=== PATIENT | female | born 1995 | race Caucasian/White ===

== ENCOUNTER 2018-01-14 10:40 | Emergency (ER) | payer OTHER ==
[2018-01-14 11:45] LABS: BILIRUBIN,URINE NEGATIVE (NEGATIVE); KETONES,URINE (UA) TRACE mg/dL (NEGATIVE); OCCULT BLOOD,URINE NEGATIVE (NEGATIVE)
[2018-01-14 11:47] LABS: CLARITY,URINE CLEAR (CLEAR)
[2018-01-14 11:49] LABS: HCG UR QUAL NEGATIVE
--- NOTE | 2018-01-14 11:52 | ED Physician Documentation ---
History of Present Illness - Stated complaint Stated Complaint: VOMITING/ABD PX - Chief complaint Chief Complaint: Abd Pain - Additonal information Additional information: hx from pt 22 f urethral cyst X 2 years followed at [facility] about a month of dysuria seen at [place] yesterday dx UTI by IUA rx macrobid and pyridium worse today wioth severe abd pain NV flank pain subj fever vag dc is not new per her no bleeding Review of Systems Constitutional: reports: Fever Cardiac: denies: Chest pain / pressure Respiratory: denies: Dyspnea GI: reports: Abdominal Pain, Nausea, Vomiting. denies: Diarrhea : reports: Dysuria. denies: Now EGA Musculoskeletal: reports: Back pain Immunocompromised: denies: Immunocompromised PD PAST MEDICAL HISTORY - Past Medical History Past Medical History: No - Past Surgical History Past Surgical History: Yes HEENT: Tonsil/Adenoidectomy - Present Medications Home Medications: Ambulatory Orders Medication Instructions Recorded Confirmed Doxycycline Hyclate 100 mg PO BID #20 capsule 01/14/18 Ibuprofen [Motrin] 400 mg PO Q6H PRN #30 tablet 01/14/18 Oxycodone HCl/Acetaminophen 1 each PO Q6HR PRN #6 tablet 01/14/18 [Percocet 5-325 mg Tablet] - Allergies Allergies/Adverse Reactions: Allergies Allergy/AdvReac Type Severity Reaction Status Date / Time No Known Drug Allergies Allergy Verified 01/14/18 10:52 - Social History Does the pt smoke?: No Smoking Status: Never smoker Does the pt drink ETOH?: No Substance Use and Type: Marijuana - Immunizations Immunizations are current?: No Immunizations: TDAP >10years/unknown PD ED PE NORMAL - Vitals Vital signs reviewed: Yes - Cardiac Cardiac: RRR - Respiratory Respiratory: No respiratory distress - Abdomen Abdomen: Soft, Other (severe TTP mid abd with guarding) - Female Female : 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), Other (large urethral cyst, + vag vault dc, yellow and white may have come from pressure speculum applied to cyst , + CMT and uterine TTP) - Back Back: Other (CVA TTP) - Derm Derm: Normal color - Neuro Neuro: Alert and oriented X 3 Results - Vitals Vitals: Vital Signs - 24 hr 01/14/18 01/14/18 10:43 12:45 Temperature 36.3 C L Heart Rate 108 H 60 Respiratory 20 16 Rate Blood Pressure 126/72 124/90 H O2 Saturation 96 100 Oxygen O2 Source Room air - Labs Labs: Laboratory Tests 01/14/18 01/14/18 01/14/18 11:25 12:30 12:30 WBC 9.8 RBC 4.66 Hgb 13.5 Hct 39.8 MCV 85.4 MCH 28.9 MCHC 33.8 RDW 14.1 Plt Count 291 MPV 9.7 Neut # (Auto) 5.7 Lymph # (Auto) 3.2 [place] # (Auto) 0.5 Eos # (Auto) 0.3 Baso # (Auto) 0.1 Absolute Nucleated RBC 0.00 Nucleated RBC % 0.0 Sodium 139 Potassium 3.9 Chloride 103 Carbon Dioxide 28 Anion Gap 8.0 BUN 13 Creatinine 0.6 Estimated GFR (MDRD) 126 Glucose 87 Calcium 9.4 Total Bilirubin 0.7 AST 19 ALT 16 Alkaline Phosphatase 70 Total Protein 7.5 Albumin 4.6 Globulin 2.9 Albumin/Globulin Ratio 1.6 Lipase 42 Urine Color DK. ORANGE Urine Clarity CLEAR Urine pH 5.0 Ur Specific [place] 1.010 Urine Protein Urine Glucose (UA) Urine Ketones TRACE Urine Occult Blood NEGATIVE Urine Nitrite Urine Bilirubin NEGATIVE Urine Urobilinogen Ur Leukocyte Esterase Urine RBC 0-5 Urine WBC 0-3 Ur Squamous Epith Cells FEW Squamous Urine Bacteria Rare Ur Microscopic Review INDICATED Urine Culture Comments NOT INDICATED Urine HCG, Qual NEGATIVE - Rads (name of study) CT AP Radiology: See rad report (mild periportal edema is non specific) PD MEDICAL DECISION MAKING - ED course ED course: pt with a 2yr hx of an infected urethral cyst that she says she expresses pus from every day that has gone untreated so far now with urinary sx but a neg UA and CMT on pelvic exam and periportal inflammation on CT concern for Priscila Garcia will discuss dispo with [facility] - paged at 1450 paged [facility] numerous times - no answer - per satff he is in the OR and unable to answer right now pt may have PID perhaps even some priscila garcia, but is hemodynamically stable, received IV ab, pain is controlled will dc on ab for tonight and req [facility] see pt for next day fup when is he is out if surgery and available to discuss - Sepsis Event Vital Signs: Vital Signs - 24 hr 01/14/18 01/14/18 10:43 12:45 Temperature 36.3 C L Heart Rate 108 H 60 Respiratory 20 16 Rate Blood Pressure 126/72 124/90 H O2 Saturation 96 100 Oxygen O2 Source Room air Departure - Departure Disposition: 01 Home, Self Care Clinical Impression: PID (acute pelvic inflammatory disease), Priscila-Win and Jose syndrome Condition: Good Instructions: ED PID Follow-Up: Benny Krause MD [Provider Admit Priv/Credential] - (tomorrow for a recheck - if you cannot be seen in [facility] clinic tomorrow come back to the ER to see me tomorrow between 7 AM and 3 PM) Prescriptions: Oxycodone HCl/Acetaminophen [Percocet 5-325 mg Tablet] 1 each PO Q6HR PRN #6 tablet PRN Reason: Severe Pain Doxycycline Hyclate 100 mg PO BID #20 capsule Ibuprofen [Motrin] 400 mg PO Q6H PRN #30 tablet PRN Reason: Pain
[2018-01-14 11:59] LABS: BACTERIA,URINE Rare /HPF (None Seen); RBC,URINE 0-5 /HPF (0-5); SQUAMOUS EPITHELIAL CELL,UR FEW Squamous (<= Few)
[2018-01-14] MEDS ORDERED: ONDANSETRON 4 MG/2 ML VIAL IVP STA (12:16)
[2018-01-14] MEDS ORDERED: SODIUM CHLORIDE 0.9% 1,000 ML IV ONE ×2 (12:16→13:54)
[2018-01-14] MEDS ORDERED: MORPHINE 2 MG/ML SYRINGE IVP STA (12:16)
[2018-01-14 12:40] LABS: BASOPHILS # (AUTO) 0.1 10^3/uL (0.0-0.1); BASOPHILS % (AUTO) 1.3 %; EOSINOPHILS # (AUTO) 0.3 10^3/uL (0.0-0.7); HGB - HEMOGLOBIN 13.5 g/dL (12.0-16.0); LYMPHOCYTES # (AUTO) 3.2 10^3/uL (1.5-3.5); LYMPHOCYTES % (AUTO) 32.8 %; MEAN CORPUSCULAR HEMOGLOBIN 28.9 pg (27.0-31.0); MEAN CORPUSCULAR HGB CONC 33.8 g/dL (32.0-36.0); MEAN CORPUSCULAR VOLUME 85.4 fL (81.0-99.0); MEAN PLATELET VOLUME 9.7 fL (7.9-10.8); MONOCYTES # (AUTO) 0.5 10^3/uL (0.0-1.0); MONOCYTES % (AUTO) 4.8 %; NEUTROPHILS # (AUTO) 5.7 10^3/uL (1.5-6.6); NEUTROPHILS % (AUTO) 58.1 %; PLT - PLATELET COUNT 291 10^3/uL (130-450); RED BLOOD COUNT 4.66 10^6/uL (4.20-5.40); RED CELL DISTRIBUTION WIDTH 14.1 % (12.0-15.0); WHITE BLOOD COUNT 9.8 x10^3/uL (4.8-10.8)
[2018-01-14 12:58] LABS: ALBUMIN 4.6 g/dL (3.2-5.5); ALBUMIN/GLOBULIN RATIO 1.6 (1.0-2.2); BILIRUBIN,TOTAL 0.7 mg/dL (0.2-1.0); CALCIUM 9.4 mg/dL (8.5-10.3); CREATININE 0.6 mg/dL (0.4-1.0); TOTAL PROTEIN 7.5 g/dL (6.7-8.2)
[2018-01-14] MEDS ORDERED: IOPAMIDOL-300 100 ML VIAL ONE (13:07)
[2018-01-14] MEDS ORDERED: IOPAMIDOL-300 100 ML VIAL IVP ONE (13:22)
--- NOTE | 2018-01-14 13:42 | CT Report ---
Procedure Date: 01/14/2018 Accession Number: [id number] / [id number] Procedure: CT - Abdomen/Pelvis W/ CPT Code: FULL RESULT: EXAM: CT ABDOMEN AND PELVIS EXAM DATE: 01/14/2018 01:20 PM. CLINICAL HISTORY: Severe diffuse abd pain. COMPARISONS: None. TECHNIQUE: Routine helical CT imaging was performed through the abdomen and pelvis. IV contrast: ISOVUE 300 100mL. Enteric contrast: No. Reconstructions: Coronal and sagittal. In accordance with CT protocol optimization, one or more of the following dose reduction techniques were utilized for this exam: automated exposure control, adjustment of mA and/or KV based on patient size, or use of iterative reconstructive technique. FINDINGS: Lung Bases: Mild dependent groundglass opacities in the right lower lobe, most likely atelectasis. 7 mm subpleural nodular density in the right middle lobe with linear morphology is of unlikely significance. Liver: Mild periportal edema. No focal lesion. Gallbladder/Bile Ducts: Unremarkable. Spleen: Normal. Pancreas: Normal. Adrenal Glands: Normal. Kidneys: Homogeneous enhancement. No mass or hydronephrosis. Peritoneal Cavity/Bowel: No bowel obstruction. Trace fluid in the pelvis may be physiologic. No abscess , free air or adenopathy. No masses or acute inflammatory process. The appendix is well visualized and normal. Pelvic Organs: The bladder, uterus and ovaries are unremarkable. Vasculature: No aneurysms or other significant abnormality. Bones: No significant abnormality. Other: None. IMPRESSION: Mild periportal edema is nonspecific and could reflect fluid status or inflammation. Otherwise negative CT of the abdomen/pelvis. RADIA
[2018-01-14] MEDS ORDERED: oxyCOD/ACETAMIN 5 MG/325 MG TABLET PO STA (14:46)
[2018-01-14] MEDS ORDERED: DOXYCYCLINE 100 MG TABLET PO STA (15:53)
[2018-01-14] MEDS ORDERED: cefOXitin 1 GM in SODIUM CHLORIDE 0.9% MINIBAG 100 ML IV STA (15:53)
[2018-01-14 17:12] VITALS: BP 121/80
== END 2018-01-14 17:26 | disposition home or self-care (01) ==
LOC: ED 10:40
DX: N73.9 Female pelvic inflammatory disease, unspecified (principal)
CPT/HCPCS: 36415; 74177; 80053; 81001; 81025; 83690; 85025; 87210; 87491; 87591; 96361; 96374; 96375; 99283; 99284; A9270; J2270; Q9967; 81003; 87070; 87086; 87205

== ENCOUNTER 2018-09-28 08:56 | Outpatient (CLI) | payer OTHER ==
--- NOTE | 2018-09-28 16:00 | Nuclear Medicine Report ---
Reason: DELAYED GASTRIC EMPTYING-GASTRIC CONTENTS ON EDG, Procedure Date: 09/28/2018 Accession Number: [id number] / [id number] Procedure: NM - Gastric Empty Small Bowel CPT Code: FULL RESULT: EXAM: Gastric Empty Small Bowel EXAM: Gastric Empty Small Bowel DATE: 09/28/2018 9:15 AM CLINICAL HISTORY: DELAYED GASTRIC EMPTYING-GASTRIC CONTENTS ON ENDOSCOPY, COMPARISON: None. TECHNIQUE: Oatmeal with 0.82 mCi of technetium 99 sulfur colloid was prepared. The patient apparently ingested approximately 2 teaspoons and then began to feel nauseous. The examination was therefore aborted. FINDINGS: No imaging was obtained. IMPRESSION: Incomplete study. RADIA
== END 2018-09-28 08:57 | disposition home or self-care (01) ==
LOC: DI 08:56
PROVIDERS: ATTEND Internal Medicine Gastroenterology
DX: K31.89 Other diseases of stomach and duodenum (principal); R10.84 Generalized abdominal pain; R11.2 Nausea with vomiting, unspecified
CPT/HCPCS: 78265

== ENCOUNTER 2019-12-08 16:42 | Emergency (ER) | payer OTHER ==
[2019-12-08] MEDS ORDERED: diphenhydrAMINE INJ 50 MG/ML VIAL IVP STA (17:11)
[2019-12-08] MEDS ORDERED: METOCLOPRAMIDE 10 MG/2 ML VIAL IVP STA (17:11)
--- NOTE | 2019-12-08 17:13 | ED Physician Documentation ---
History of Present Illness - Stated complaint Stated Complaint: HEAD PAIN - Chief complaint Chief Complaint: General - History obtained from History obtained from: Patient - Additonal information Additional information: 3 years ago when she was she had severe preeclampsia. Ever since then she has had trouble with headaches but the headaches have been much more acute over the last 4 days, constant posterior occipital headaches associated with light sensitivity and nausea but no vomiting. No fevers. She notes that it is particular bad if she takes a shower and the water hits her scalp. Has not tried anything for it. Review of Systems Ten Systems: 10 systems reviewed and negative Constitutional: reports: Sweats. 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) - Past Surgical History Past Surgical History: Yes HEENT: Tonsil/Adenoidectomy - Present Medications Home Medications: Ambulatory Orders Medication Instructions Recorded Confirmed Doxycycline Hyclate 100 mg PO BID #20 capsule 01/14/18 Ibuprofen [Motrin] 400 mg PO Q6H PRN #30 tablet 01/14/18 Oxycodone HCl/Acetaminophen 1 each PO Q6HR PRN #6 tablet 01/14/18 [Percocet 5-325 mg Tablet] SUMAtriptan [Imitrex] 25 mg PO BID PRN #14 tablet 12/08/19 - Allergies Allergies/Adverse Reactions: Allergies Allergy/AdvReac Type Severity Reaction Status Date / Time No Known Drug Allergies Allergy Verified 12/08/19 17:02 - Living Situation Living Situation: reports: With spouse/s.o. - Social History Does the pt smoke?: No Smoking Status: Never smoker Does the pt drink ETOH?: No - Immunizations Immunizations are current?: No Immunizations: TDAP >10years/unknown PD ED PE NORMAL - Vitals Vital signs reviewed: Yes - General General: Alert and oriented X 3 (She is tearful, photophobic, and in pain.) - HEENT HEENT: PERRL, EOMI - Neck Neck: Supple, no meningeal sign, No bony TTP - Back Back: No CVA TTP, No spinal TTP - Derm Derm: Normal color, Warm and dry - Extremities Extremities: No edema, No calf tenderness / cord - Neuro Neuro: Alert and oriented X 3, No motor deficit, No sensory deficit, Normal speech - Psych Psych: Normal mood, Normal affect Results - Vitals Vitals: Vital Signs - 24 hr 12/08/19 12/08/19 12/08/19 16:53 17:33 18:03 Temperature 37.3 C Heart Rate 101 H 68 70 Respiratory 16 24 22 Rate Blood Pressure 139/91 H 105/65 104/83 H O2 Saturation 98 100 99 12/08/19 18:30 Temperature Heart Rate 64 Respiratory 20 Rate Blood Pressure 122/71 O2 Saturation 100 Oxygen O2 Source Room air - Labs Labs: Laboratory Tests 12/08/19 12/08/19 17:20 17:20 WBC 9.0 RBC 4.71 Hgb 13.9 Hct 41.0 MCV 87.0 MCH 29.5 MCHC 33.9 RDW 12.2 Plt Count 263 MPV 10.9 H Neut # (Auto) 5.8 Lymph # (Auto) 2.5 [place] # (Auto) 0.6 Eos # (Auto) 0.2 Baso # (Auto) 0.1 Absolute Nucleated RBC 0.00 Nucleated RBC % 0.0 Sodium 140 Potassium 3.3 L Chloride 104 Carbon Dioxide 27 Anion Gap 9.0 BUN 12 Creatinine 0.7 Estimated GFR (MDRD) 104 Glucose 103 H Calcium 9.6 Total Bilirubin 1.0 AST 18 ALT 19 Alkaline Phosphatase 60 Total Protein 8.3 H Albumin 5.1 Globulin 3.2 Albumin/Globulin Ratio 1.6 Lipase 36 - Rads (name of study) CT Head Radiology: EMP read contemporaneously (NAD) PD MEDICAL DECISION MAKING - ED course ED course: 24-year-old woman with a worsening intractable headache. After some Benadryl and Reglan it took the edge off, and after Subcutaneous Imitrex the headache was gone. Cranial imaging was negative. Departure - Departure Disposition: 01 Home, Self Care Clinical Impression: Migraine Qualifiers: Migraine type: without aura Status migrainosus presence: with status migrainosus Intractability: not intractable Qualified Code(s): G43.001 - Migraine without aura, not intractable, with status migrainosus Condition: Good Record reviewed to determine appropriate education?: Yes Instructions: ED Headache Migraine Prescriptions: SUMAtriptan [Imitrex] 25 mg PO BID PRN #14 tablet PRN Reason: Headache Comments: You were seen tonight for a worsening of a chronic headache. CAT scan of your head was negative. You had excellent relief with subcutaneous Imitrex and you are receiving a prescription for oral Imitrex as well. Please follow-up with your doctor, if you continue to have frequent headaches she may want to start you on a prophylactic medication, there are many options. Return if worse or if the medication is not effective.
[2019-12-08 17:29] LABS: BASOPHILS # (AUTO) 0.1 10^3/uL (0.0-0.1); BASOPHILS % (AUTO) 0.8 %; EOSINOPHILS # (AUTO) 0.2 10^3/uL (0.0-0.7); EOSINOPHILS % (AUTO) 1.8 %; HGB - HEMOGLOBIN 13.9 g/dL (12.0-16.0); LYMPHOCYTES # (AUTO) 2.5 10^3/uL (1.5-3.5); LYMPHOCYTES % (AUTO) 27.2 %; MEAN CORPUSCULAR HEMOGLOBIN 29.5 pg (27.0-31.0); MEAN CORPUSCULAR HGB CONC 33.9 g/dL (32.0-36.0); MEAN PLATELET VOLUME 10.9 fL (7.9-10.8); MONOCYTES # (AUTO) 0.6 10^3/uL (0.0-1.0); MONOCYTES % (AUTO) 6.2 %; NEUTROPHILS # (AUTO) 5.8 10^3/uL (1.5-6.6); NEUTROPHILS % (AUTO) 63.8 %; PLT - PLATELET COUNT 263 10^3/uL (130-450); RED BLOOD COUNT 4.71 10^6/uL (4.20-5.40); RED CELL DISTRIBUTION WIDTH 12.2 % (12.0-15.0)
[2019-12-08 17:41] LABS: ALBUMIN 5.1 g/dL (3.2-5.5); ALBUMIN/GLOBULIN RATIO 1.6 (1.0-2.2); CALCIUM 9.6 mg/dL (8.5-10.3); CREATININE 0.7 mg/dL (0.4-1.0); TOTAL PROTEIN 8.3 g/dL (6.7-8.2)
[2019-12-08] MEDS ORDERED: SUMAtriptan 6 MG/0.5 ML VIAL SUBQ STA (18:10)
[2019-12-08] MEDS ORDERED: SODIUM CHLORIDE 0.9% 1,000 ML IV STA (18:10)
--- NOTE | 2019-12-08 18:12 | CT Report ---
PROCEDURE: HEAD WO INDICATIONS: headache TECHNIQUE: Noncontrast 4.5 mm thick angled axial sections acquired from the foramen magnum to the vertex. For r adiation dose reduction, the following was used: automated exposure control, adjustment of mA and/or kV according to patient size. COMPARISON: None. FINDINGS: Image quality: Excellent. CSF spaces: Basal cisterns are patent. No extra-axial fluid collections. Ventricles are normal in size and shape. Brain: No midline shift. No intracranial masses or hemorrhage. Wheat-white matter interface is norm al. Skull and face: Calvarium and visualized facial bones are intact, without suspicious lesions. Sinuses: Visualized sinuses and mastoids are clear. IMPRESSION: No acute intracranial disease process. Reviewed by: Shaniqua Mcintyre MD, PhD on 12/08/2019 6:10 PM PDT Approved by: Shaniqua Mcintyre MD, PhD on 12/08/2019 6:10 PM PDT Station ID: [id number]
[2019-12-08 18:41] LABS: MUDS CUTOFF CONCENTRATIONS CUTOFF CONC BELOW:
[2019-12-08 18:50] LABS: BILIRUBIN,URINE NEGATIVE (NEGATIVE); GLUCOSE, URINE (UA) NEGATIVE (NEGATIVE); KETONES,URINE (UA) NEGATIVE (NEGATIVE); LEUKOCYTE ESTERASE, URINE TRACE (NEGATIVE); NITRITE,URINE NEGATIVE (NEGATIVE); OCCULT BLOOD,URINE TRACE-INTA (NEGATIVE); PROTEIN,URINE NEGATIVE (NEGATIVE); UROBILINOGEN,URINE 0.2 (NORMAL) E.U./dL (NORMAL)
[2019-12-08 19:04] LABS: AMPHETAMINE SCREEN,URINE NEGATIVE (NEGATIVE); BENZODIAZEPINES SCREEN, URINE NEGATIVE (NEGATIVE); CLARITY,URINE CLEAR (CLEAR); COCAINE SCREEN URINE NEGATIVE (NEGATIVE); HCG UR QUAL NEGATIVE; METHADONE SCREEN, URINE NEGATIVE (NEGATIVE); METHAMPHETAMINES SCREEN, URINE NEGATIVE (NEGATIVE); OPIATE SCREEN, URINE NEGATIVE (NEGATIVE); OXYCODONE SCREEN, URINE NEGATIVE (NEGATIVE); PROPOXYPHENE SCREEN, URINE NEGATIVE (NEGATIVE); TRICYCLIC ANTIDEPRESSANT,URINE NEGATIVE (NEGATIVE)
[2019-12-08 19:09] LABS: BACTERIA,URINE Many /HPF (None Seen); RBC,URINE 0-5 /HPF (0-5); SQUAMOUS EPITHELIAL CELL,UR MANY Squamous (<= Few)
[2019-12-08 19:12] VITALS: BP 113/62
== END 2019-12-08 19:12 | disposition home or self-care (01) ==
LOC: ED 16:42
DX: G43.001 Migraine without aura, not intractable, with status migrainosus (principal)
CPT/HCPCS: 36415; 70450; 80053; 80306; 81001; 81025; 83690; 85025; 96361; 96372; 96374; 99284; J1200; J2765; 81003; 87086

== ENCOUNTER 2021-06-10 08:45 | Emergency (ER) | payer OTHER ==
[2021-06-10] MEDS ORDERED: ONDANSETRON 4 MG/2 ML VIAL IVP STA (09:07)
[2021-06-10] MEDS ORDERED: HYDROmorphone 1 MG/ML CARPUJECT IVP STA (09:07)
[2021-06-10] MEDS ORDERED: SODIUM CHLORIDE 0.9% 1,000 ML IV STA (09:07)
--- NOTE | 2021-06-10 09:08 | ED Physician Documentation ---
PD HPI ABD PAIN - Stated complaint Stated Complaint: VOMITING - Chief complaint Chief Complaint: Abd Pain - History obtained from History obtained from: Patient - Additional information Additional information: 26-year-old woman is postop day 4 from a urethral cyst removal by Dr. Nicole at [facility]. Postoperatively she had a lot of vomiting and has a Kraus catheter in place. She is developed progressive pelvic pain radiating to both sides of the back along with bladder spasms and chills at home without measured fevers noting that she does not have a thermometer. The vomiting went away initially after the surgery, but recurred severely early this morning. Postoperatively she is on clindamycin, oxybutynin, Pyridium and ketorolac. Review of Systems Ten Systems: 10 systems reviewed and negative Constitutional: reports: Chills, Myalgias, Fatigue Nose: denies: Rhinorrhea / runny nose Throat: denies: Sore throat Respiratory: denies: Dyspnea, Cough GI: reports: Abdominal Pain (pelvic), Nausea, Vomiting. 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 HEENT: None Psych: Depression, Anxiety, Other Musculoskeletal: None Derm: None - Past Surgical History Past Surgical History: Yes HEENT: Tonsil/Adenoidectomy - Present Medications Home Medications: Ambulatory Orders Medication Instructions Recorded Confirmed Doxycycline Hyclate 100 mg PO BID #20 capsule 01/14/18 Ibuprofen [Motrin] 400 mg PO Q6H PRN #30 tablet 01/14/18 Oxycodone HCl/Acetaminophen 1 each PO Q6HR PRN #6 tablet 01/14/18 [Percocet 5-325 mg Tablet] SUMAtriptan [Imitrex] 25 mg PO BID PRN #14 tablet 12/08/19 HYDROcod/ACETAM 5/325 [[place] 5/325] 1 - 2 tab PO Q6H PRN #15 tablet 06/10/21 Ondansetron Odt [Zofran] 4 mg TL Q6H PRN #10 tablet 06/10/21 Oxybutynin Chloride [Ditropan Xl] 3 tab PO DAILY #60 tab 06/10/21 - Allergies Allergies/Adverse Reactions: Allergies Allergy/AdvReac Type Severity Reaction Status Date / Time No Known Drug Allergies Allergy Verified 06/10/21 08:48 - Social History Does the pt smoke?: No Smoking Status: Former smoker Does the pt drink ETOH?: No Does the pt have substance abuse?: Yes Substance Use and Type: Marijuana - Immunizations Immunizations are current?: No Immunizations: TDAP >10years/unknown PD ED PE NORMAL - Vitals Vital signs reviewed: Yes - General General: Alert and oriented X 3, No acute distress - Cardiac Cardiac: RRR, No murmur - Respiratory Respiratory: No respiratory distress, Clear bilaterally - Abdomen Abdomen: Normal bowel sounds, Soft, Non tender - Female Female : Other (External exam done with Rafaela Park RN, kraus in place, scant blood from urethra. ) - Derm Derm: Normal color, Warm and dry - Neuro Neuro: Alert and oriented X 3, Normal speech Results - Vitals Vitals: Vital Signs - 24 hr 06/10/21 06/10/21 06/10/21 08:49 08:53 11:02 Temperature 36.9 C 36.9 C 36.6 C Heart Rate 90 90 63 Respiratory 20 20 12 Rate Blood Pressure 133/82 H 133/82 H 131/97 H O2 Saturation 98 98 99 Oxygen O2 Source Room air - Labs Labs: Laboratory Tests 06/10/21 06/10/21 06/10/21 09:12 09:12 09:38 WBC 9.1 RBC 4.04 L Hgb 12.0 Hct 35.9 L MCV 88.9 MCH 29.7 MCHC 33.4 RDW 11.9 L Plt Count 267 MPV 11.1 H Neut # (Auto) 6.6 Lymph # (Auto) 1.4 L [place] # (Auto) 0.7 Eos # (Auto) 0.3 Baso # (Auto) 0.1 Absolute Nucleated RBC 0.00 Nucleated RBC % 0.0 Sodium 142 Potassium 3.4 L Chloride 104 Carbon Dioxide 25 Anion Gap 13.0 BUN 22 H Creatinine 0.9 Estimated GFR (MDRD) 76 L Glucose 98 Calcium 9.8 Urine Color ORANGE Urine Clarity CLEAR Urine pH Ur Specific [place] Urine Protein Urine Glucose (UA) NEGATIVE Urine Ketones NEGATIVE Urine Occult Blood Urine Nitrite Urine Bilirubin NEGATIVE Urine Urobilinogen Ur Leukocyte Esterase Urine RBC 11-25 H Urine WBC 0-3 Ur Squamous Epith Cells RARE Squamous Urine Bacteria Few Ur Microscopic Review INDICATED Urine Culture Comments NOT INDICATED Urine HCG, Qual NEGATIVE PD MEDICAL DECISION MAKING - ED course ED course: 26-year-old woman with pain related to bladder spasms postoperatively after a urethral cyst removal. She was treated successfully here with narcotic analgesia and I put out a call to her urologist and spoke with JANNY Richardson on- call for the group who agreed that it was too soon to remove the Kraus catheter on postoperative day 4 but wants her oxybutynin increased to long-acting at 15 mg a day, noting she was on 10 mg a day. Departure - Departure Disposition: Home, Self Care Clinical Impression: Bladder spasm, Kraus catheter in place Condition: Good Record reviewed to determine appropriate education?: Yes Prescriptions: Oxybutynin Chloride [Ditropan Xl] 3 tab PO DAILY #60 tab HYDROcod/ACETAM 5/325 [[place] 5/325] 1 - 2 tab PO Q6H PRN #15 tablet PRN Reason: Pain Ondansetron Odt [Zofran] 4 mg TL Q6H PRN #10 tablet PRN Reason: Nausea / Vomiting Comments: As discussed, I am increasing your oxybutynin dose based on recommendation from the urologist. Your prescriptions were sent electronically to [facility] in [place]. Return for new or worsening symptoms and follow-up with your urologist as scheduled I am prescribing a short course of narcotic pain medication for you. These are potentially dangerous and addictive medications that should be used carefully. These medications may constipate you. Take an [id number] stool softener (docusate) twice daily with plenty of water while taking these medications. If you go 24 hours without a bowel movement, take [id number] miralax, per package instructions. Do not drink or drive while taking these medications. If you received narcotic or sedating medications while in the emergency department, do not drive for 24 hours. Store this medication in a safe, secure place and out of reach of children. It is a violation of federal law to give or sell this medication to another person or to use in a manner other than prescribed. The ED will not refill narcotic prescriptions, including prescriptions lost or stolen. To dispose of unwanted medications: 1. [facility] at [address] in [place] has a medication drop box. They accept prescription medications (in pill form) Friday through Friday 9:00 a.m. to 5:00 p.m. 2. The [facility] [employer] accepts prescription medications (in pill form only) for disposal year round. Call for more information. 3. Contact the [facility] for the next [facility] sponsored prescription drug collection event. , [phone], or [phone]; Note that many narcotic pain relievers also contain Tylenol/acetaminophen. Please ensure that your total dose of acetaminophen from all sources does not exceed 3 g (3000 mg) per day.
[2021-06-10 09:19] LABS: BASOPHILS # (AUTO) 0.1 10^3/uL (0.0-0.1); BASOPHILS % (AUTO) 1.1 %; EOSINOPHILS # (AUTO) 0.3 10^3/uL (0.0-0.7); HCT - HEMATOCRIT 35.9 % (37.0-47.0); LYMPHOCYTES # (AUTO) 1.4 10^3/uL (1.5-3.5); LYMPHOCYTES % (AUTO) 15.8 %; MEAN CORPUSCULAR HEMOGLOBIN 29.7 pg (27.0-31.0); MEAN CORPUSCULAR HGB CONC 33.4 g/dL (32.0-36.0); MEAN CORPUSCULAR VOLUME 88.9 fL (81.0-99.0); MEAN PLATELET VOLUME 11.1 fL (7.9-10.8); MONOCYTES # (AUTO) 0.7 10^3/uL (0.0-1.0); MONOCYTES % (AUTO) 7.7 %; NEUTROPHILS # (AUTO) 6.6 10^3/uL (1.5-6.6); NEUTROPHILS % (AUTO) 72.1 %; PLT - PLATELET COUNT 267 10^3/uL (130-450); RED BLOOD COUNT 4.04 10^6/uL (4.20-5.40); RED CELL DISTRIBUTION WIDTH 11.9 % (12.0-15.0); WHITE BLOOD COUNT 9.1 x10^3/uL (4.8-10.8)
[2021-06-10 09:27] LABS: CALCIUM 9.8 mg/dL (8.5-10.3); CREATININE 0.9 mg/dL (0.4-1.0); POTASSIUM 3.4 mmol/L (3.5-5.0)
[2021-06-10 09:45] LABS: BILIRUBIN,URINE NEGATIVE (NEGATIVE); GLUCOSE, URINE (UA) NEGATIVE (NEGATIVE); KETONES,URINE (UA) NEGATIVE (NEGATIVE)
[2021-06-10 09:46] LABS: CLARITY,URINE CLEAR (CLEAR)
[2021-06-10 09:47] LABS: HCG UR QUAL NEGATIVE
[2021-06-10 09:54] LABS: BACTERIA,URINE Few /HPF (None Seen); SQUAMOUS EPITHELIAL CELL,UR RARE Squamous (<= Few); WBC,URINE 0-3 /HPF (0-5)
[2021-06-10 12:22] VITALS: BP 128/88
== END 2021-06-10 12:21 | disposition home or self-care (01) ==
LOC: ED 08:45
DX: N32.89 Other specified disorders of bladder (principal); R11.2 Nausea with vomiting, unspecified; Z98.890 Other specified postprocedural states; Z87.891 Personal history of nicotine dependence
CPT/HCPCS: 36415; 80048; 81001; 81025; 85025; 96374; 96375; 99283; 99284; J1170; 81003; 87086

== ENCOUNTER 2023-05-29 13:15 | Emergency (ER) | payer OTHER ==
--- NOTE | 2023-05-29 14:01 | ED Physician Documentation ---
PD HPI NVD - Stated complaint Stated Complaint: N/V, EXCESS SALIVA - Chief complaint Chief Complaint: Abd Pain - History obtained from History obtained from: Patient - History of Present Illness Timing - onset: How many weeks ago (2-3) Timing - duration: Weeks Timing - details: Gradual onset, Still present, Waxing and waning Associated symptoms: Abdominal pain (Lower abdominal cramping just the last several days. No vaginal bleeding or discharge.) Contributing factors: Other (6 weeks and had hypeemsis with first as well.). No: Sick contact, Bad food Improved by: No: Vomiting Worsened by: Eating Recently seen: Not recently seen Review of Systems Constitutional: denies: Fever, Chills Nose: denies: Rhinorrhea / runny nose, Congestion Throat: reports: Other (Swelling pain and tenderness in the submandibular area with excessive salivation. 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 HEENT: None Psych: Depression, Anxiety, Other Musculoskeletal: None Derm: None - Past Surgical History Past Surgical History: Yes HEENT: Tonsil/Adenoidectomy - Present Medications Home Medications: Ambulatory Orders Medication Instructions Recorded Confirmed Doxycycline Hyclate 100 mg PO BID #20 capsule 01/14/18 Ibuprofen [Motrin] 400 mg PO Q6H PRN #30 tablet 01/14/18 Oxycodone HCl/Acetaminophen 1 each PO Q6HR PRN #6 tablet 01/14/18 [Percocet 5-325 mg Tablet] SUMAtriptan [Imitrex] 25 mg PO BID PRN #14 tablet 12/08/19 HYDROcod/ACETAM 5/325 [[place] 5/325] 1 - 2 tab PO Q6H PRN #15 tablet 06/10/21 Ondansetron Odt [Zofran] 4 mg TL Q6H PRN #10 tablet 06/10/21 oxyBUTYnin chloride [Ditropan Xl] 3 tab PO DAILY #60 tab 06/10/21 Doxylamine Succinate [Unisom Sleep 25 mg PO Q8H PRN #30 tablet 05/29/23 Aid] Famotidine [Pepcid] 20 mg PO DAILY #20 tablet 05/29/23 Naproxen 250 mg PO BID 7 Days #15 tablet 05/29/23 Ondansetron Odt [Zofran] 4 mg TL Q6H PRN #20 tablet 05/29/23 Pyridoxine HCl (Vitamin B6) 25 mg PO BID #60 tablet 05/29/23 [Vitamin B-6] cephALEXin [Keflex] 500 mg PO TID #15 cap 05/29/23 - Allergies Allergies/Adverse Reactions: Allergies Allergy/AdvReac Type Severity Reaction Status Date / Time No Known Drug Allergies Allergy Verified 05/29/23 13:19 - Social History Does the pt smoke?: No Smoking Status: Never smoker Does the pt drink ETOH?: No Does the pt have substance abuse?: Yes - Immunizations Immunizations are current?: No Immunizations: TDAP >10years/unknown PD ED PE NORMAL - Vitals Vital signs reviewed: Yes - General General: Alert and oriented X 3, Well developed/nourished, Other (somewhat anxious about symptoms. Feeling lightheade subjectively. Dry lips. ) - HEENT HEENT: Pharynx benign, Other (there is swelling and tenderness submandibular area. No redness. clear excess saliva without purulence. ) - Neck Neck: Supple, no meningeal sign - Cardiac Cardiac: No murmur. No: RRR (regular but mild tachycardia) - Respiratory Respiratory: Clear bilaterally - Abdomen Abdomen: Normal bowel sounds, Soft, Non distended, Other (mild tender without guarding suprapubic area. ) - Female Female : Deferred - Back Back: No CVA TTP - Derm Derm: Normal color - Neuro Neuro: Alert and oriented X 3, Normal speech Results - Vitals Vitals: Vital Signs - 24 hr 05/29/23 05/29/23 05/29/23 13:19 16:36 17:01 Temperature 36.8 C Heart Rate 100 65 73 Respiratory 16 16 18 Rate Blood Pressure 138/81 H 119/65 119/65 O2 Saturation 98 100 99 Oxygen O2 Source Room air - Labs Labs: Laboratory Tests 05/29/23 05/29/23 14:26 14:26 WBC 12.0 H RBC 4.08 L Hgb 11.6 L Hct 35.9 L MCV 88.0 MCH 28.4 MCHC 32.3 RDW 12.5 Plt Count 293 MPV 11.2 H Neut # (Auto) 9.4 H Lymph # (Auto) 1.9 [place] # (Auto) 0.6 Eos # (Auto) 0.0 Baso # (Auto) 0.1 Absolute Nucleated RBC 0.00 Nucleated RBC % 0.0 Sodium 138 Potassium 3.2 L Chloride 104 Carbon Dioxide 26 Anion Gap 8.0 BUN 11 Creatinine 0.6 Estimated GFR (MDRD) 120 Glucose 99 Calcium 9.6 Magnesium 1.7 Total Bilirubin 0.5 AST 14 ALT 14 Alkaline Phosphatase 66 Total Protein 7.3 Albumin 4.5 Globulin 2.8 Albumin/Globulin Ratio 1.6 Lipase 40 Beta HCG, Quant 91826.3 - Rads (name of study) OB US Relevant Findings:: Prelim report reviewed, Other (US Tech - single IUP HR 124, 6w6d size, with small subchorionic bleed. Left corpus lueum cyst. No free fluid. ) PD Medical Decision Making - ED course Complexity details: reviewed results (has fairly normal CBC an d chemistries with potassium low at 3.2 Can improve this with better general intake and potassium high foods. ), re-evaluated patient (improved general wellness and decreased nausea and cramps with IV fluids, Zofran, Toradol. Also given Decadron per ACOG guidlines. ), considered differential (Patient reports about 3 weeks of frequent nausea with intermittent vomiting that has become worse the last week with no consistent vomiting and some upper abdominal discomfort with eating. She is estimated 6 weeks .), d/w patient ED course: The patient has had considerable improvement in her nausea. She also states her abdominal cramping is gone. Preliminary report from the engineering technical analyst is a viable intrauterine at 6 weeks 6 days gestation with small corpus luteum cyst still present. There is a small subchorionic bleed noted. Otherwise no acute other abnormalities. I did convey this to the patient. She is still having some tenderness in the submandibular area related to some gland inflammation. It is not red or swollen but I would still consider inflammation of it versus mild infection. We can go with some antibiotics as well as anti-inflammatories. Regarding her related nausea and vomiting, we can go with the ACOG common medications of doxylamine and vitamin B6 with addition of Zofran if needed. Given the prolonged vomiting she has had with stomach pain, I would also add famotidine for couple of weeks. She had been given ondansetron and Toradol here for the nausea and cramps. I did give a dose of dexamethasone per recommendations from ACOG. I will send prescriptions to [facility] preferred pharmacy. Departure - Departure Disposition: 01 Home, Self Care Clinical Impression: Submandibular gland swelling, Hyperemesis gravidarum, Gastritis Qualifiers: Weeks of gestation: less than 8 weeks Qualified Code(s): Z3A.01 - Less than 8 weeks gestation of Condition: Stable Record reviewed to determine appropriate education?: Yes Instructions: ED Nausea Vomiting Follow-Up: JOSE OWUSU MD [Primary Care Provider] - Prescriptions: cephALEXin [Keflex] 500 mg PO TID #15 cap Naproxen 250 mg PO BID 7 Days #15 tablet Famotidine [Pepcid] 20 mg PO DAILY #20 tablet Doxylamine Succinate [Unisom Sleep Aid] 25 mg PO Q8H PRN #30 tablet PRN Reason: Nausea / Vomiting Pyridoxine HCl (Vitamin B6) [Vitamin B-6] 25 mg PO BID #60 tablet Ondansetron Odt [Zofran] 4 mg TL Q6H PRN #20 tablet PRN Reason: Nausea / Vomiting Comments: Your ultrasound shows a viable at 6 weeks and 6 days gestational age. There is a small subchorionic bleed noted which is relative typically common in early . There is concern that it could be a sign of a early miscarriage but most commonly the progresses normally. Follow-up with [facility] CARE [facility]IST[facility] at the earliest appointment when you get the referral. At this point we mostly want to treat your nausea and vomiting and keep you well-hydrated. Use vitamin B6 twice daily as directed and add Zofran every 6 hours if needed for nausea or doxylamine as needed for nausea. You can use both if needed. Since you have been having a lot of vomiting, your stomach is likely very irritated so adding famotidine/Pepcid acid reducing medicine daily for the next few weeks as well would be helpful. Regarding your swollen submandibular gland, sometimes this is just inflammation and clogging of the ducts so gentle massage of the area and some anti- inflammatory. It can get infected and cause the symptoms as well so I am adding cephalexin 3 times a day for the next 5 days. Recheck if that not improving well over the next several days. I sent your prescriptions to [facility] pharmacy. Recheck if not improving well over the next several days with your primary care and again follow-up with REHAB CARE ASSISTANT at earliest. Forms: PCP List Discharge Date/Time: 05/29/23 17:01
[2023-05-29] MEDS ORDERED: KETOROLAC 15 MG/ML VIAL IVP STA (14:25)
[2023-05-29] MEDS ORDERED: FAMOTIDINE 20 MG/2 ML VIAL IVP STA (14:25)
[2023-05-29] MEDS ORDERED: ONDANSETRON 4 MG/2 ML VIAL IVP STA (14:25)
[2023-05-29] MEDS ORDERED: SODIUM CHLORIDE 0.9% 1,000 ML IV STA ×2 (14:25→14:28)
[2023-05-29 14:37] LABS: BASOPHILS # (AUTO) 0.1 10^3/uL (0.0-0.1); BASOPHILS % (AUTO) 0.6 %; EOSINOPHILS % (AUTO) 0.3 %; HCT - HEMATOCRIT 35.9 % (37.0-47.0); HGB - HEMOGLOBIN 11.6 g/dL (12.0-16.0); LYMPHOCYTES # (AUTO) 1.9 10^3/uL (1.5-3.5); LYMPHOCYTES % (AUTO) 15.9 %; MEAN CORPUSCULAR HEMOGLOBIN 28.4 pg (27.0-31.0); MEAN CORPUSCULAR HGB CONC 32.3 g/dL (32.0-36.0); MEAN PLATELET VOLUME 11.2 fL (7.9-10.8); MONOCYTES # (AUTO) 0.6 10^3/uL (0.0-1.0); MONOCYTES % (AUTO) 4.6 %; NEUTROPHILS # (AUTO) 9.4 10^3/uL (1.5-6.6); NEUTROPHILS % (AUTO) 78.3 %; PLT - PLATELET COUNT 293 10^3/uL (130-450); RED BLOOD COUNT 4.08 10^6/uL (4.20-5.40); RED CELL DISTRIBUTION WIDTH 12.5 % (12.0-15.0)
[2023-05-29 14:55] LABS: ALBUMIN 4.5 g/dL (3.2-5.5); ALBUMIN/GLOBULIN RATIO 1.6 (1.0-2.2); BILIRUBIN,TOTAL 0.5 mg/dL (0.2-1.0); CALCIUM 9.6 mg/dL (8.5-10.3); CREATININE 0.6 mg/dL (0.6-1.3); MAGNESIUM 1.7 mg/dL (1.7-2.3); POTASSIUM 3.2 mmol/L (3.5-4.5); TOTAL PROTEIN 7.3 g/dL (6.4-8.9)
--- NOTE | 2023-05-29 16:04 | Ultrasound Report ---
PROCEDURE: OB First Trimester INDICATIONS: 6 wks EGA, cramps OUTSIDE/PRIOR DATING DATA: Last menstrual period (LMP): 04/07/2023. LMP-based estimated date of delivery (TIERRA): 01/12/2024. First dating scan (date and location): 05/29/2023. Estimated date of delivery (TIERRA) from first dating scan: 01/16/2024. TECHNIQUE: Real-time scanning was performed of the fetus and maternal pelvic organs, with image documentation. COMPARISON: None. FINDINGS: Intrauterine gestational sac present. Single living intrauterine gestation with a heart rate of 124 bpm. [place]-rump length is 9 mm co rresponding to a 6 week 6 day gestation. A small subchorionic hemorrhage measuring 36 mm x 24 mm x 29 mm. Measurement variability in dating: +/- 4 weeks by LMP, +/- 7 days by mean sac diameter (use before 6 weeks gestation if crown-rump length not able to be measured), +/- 5 days by crown-rump length (6-12 weeks gestation). Maternal organs: Left sided corpus luteal cyst. IMPRESSION: 1. Single living intrauterine gestation. Reviewed by: Jaron Cox MD on 05/29/2023 4:03 PM PST Approved by: aJron Cox MD on 05/29/2023 4:03 PM PST Station ID: [id number]
[2023-05-29] MEDS ORDERED: DEXAMETHASONE 10 MG/ML VIAL IVP STA (16:23)
[2023-05-29] MEDS ORDERED: cephALEXin 250 MG CAPSULE PO STA (16:23)
[2023-05-29 16:46] VITALS: BP 119/65
[2023-05-29 17:04] VITALS: O2SAT 99
== END 2023-05-29 17:01 | disposition home or self-care (01) ==
LOC: ED 13:15
DX: O21.0 Mild hyperemesis gravidarum (principal); O99.611 Diseases of the digestive system complicating pregnancy, first trimester; K29.70 Gastritis, unspecified, without bleeding; Z3A.01 Less than 8 weeks gestation of pregnancy
CPT/HCPCS: 36415; 76801; 80053; 83690; 83735; 84702; 85025; 96361; 96374; 96375; 99284; A9270

== ENCOUNTER 2023-06-06 09:33 | Emergency (ER) | payer OTHER ==
--- NOTE | 2023-06-06 09:45 | ED Physician Documentation ---
PD HPI NVD - Stated complaint Stated Complaint: GI/NAUTIOUS - Chief complaint Chief Complaint: Abd Pain - History obtained from History obtained from: Patient - History of Present Illness Timing - onset: How many weeks ago (2) Timing - duration: Weeks (2) Timing - details: Abrupt onset, Still present, Waxing and waning Associated symptoms: Abdominal pain (mid to upper abd pain shantel with vomiting. Not constant.), Loss of appetite. No: Fever, Near syncope / syncope Contributing factors: Other (she is about 8 weeks and has attributed symptoms to that.). No: Sick contact, Bad food Improved by: No: Vomiting Worsened by: Eating Similar symptoms before: Has not had sx before Recently seen: Emergency Dept (seen 8 days ago for the same and had pelvic US showing viable IUP, and labs that were normal lipase and LFTs, Rx with IV fluids and meds and given home Rx for vit B-6, doxylamine, zofran, famotidine. Also Keflex for submandibular adenitis, meloxicam. She states emesis of meds 2-3 days.) Review of Systems Constitutional: reports: Myalgias. denies: Fever, Chills Throat: reports: Sore throat Respiratory: denies: Cough GI: reports: Abdominal Pain, Nausea, Vomiting, Constipation (has feeling of constipation now the past few days with less PO intake. Has tried Miralax, Magnesium, fiber, exlax. Has increased abd cramping but no stools out.). denies: Diarrhea : reports: Now EGA (8). 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 HEENT: None Psych: Depression, Anxiety, Other Musculoskeletal: None Derm: None - Past Surgical History Past Surgical History: Yes HEENT: Tonsil/Adenoidectomy - Present Medications Home Medications: Ambulatory Orders Medication Instructions Recorded Confirmed Doxycycline Hyclate 100 mg PO BID #20 capsule 01/14/18 Ibuprofen [Motrin] 400 mg PO Q6H PRN #30 tablet 01/14/18 Oxycodone HCl/Acetaminophen 1 each PO Q6HR PRN #6 tablet 01/14/18 [Percocet 5-325 mg Tablet] SUMAtriptan [Imitrex] 25 mg PO BID PRN #14 tablet 12/08/19 HYDROcod/ACETAM 5/325 [[place] 5/325] 1 - 2 tab PO Q6H PRN #15 tablet 06/10/21 Ondansetron Odt [Zofran] 4 mg TL Q6H PRN #10 tablet 06/10/21 oxyBUTYnin chloride [Ditropan Xl] 3 tab PO DAILY #60 tab 06/10/21 Doxylamine Succinate [Unisom Sleep 25 mg PO Q8H PRN #30 tablet 05/29/23 Aid] Famotidine [Pepcid] 20 mg PO DAILY #20 tablet 05/29/23 Naproxen 250 mg PO BID 7 Days #15 tablet 05/29/23 Ondansetron Odt [Zofran] 4 mg TL Q6H PRN #20 tablet 05/29/23 Pyridoxine HCl (Vitamin B6) 25 mg PO BID #60 tablet 05/29/23 [Vitamin B-6] cephALEXin [Keflex] 500 mg PO TID #15 cap 05/29/23 Bisacodyl Supp [Dulcolax Supp] 10 mg MT DAILY PRN #10 supp 06/06/23 Promethazine Supp [Phenergan Supp] 25 mg MT Q6H PRN #10 supp 06/06/23 dexAMETHasone [Decadron] 4 mg PO DAILY #5 tablet 06/06/23 - Allergies Allergies/Adverse Reactions: Allergies Allergy/AdvReac Type Severity Reaction Status Date / Time No Known Drug Allergies Allergy Verified 06/06/23 09:41 - Social History Does the pt smoke?: No Smoking Status: Never smoker Does the pt drink ETOH?: No Does the pt have substance abuse?: Yes - Immunizations Immunizations are current?: No Immunizations: TDAP >10years/unknown - POLST Patient has POLST: No PD ED PE NORMAL - Vitals Vital signs reviewed: Yes - General General: Alert and oriented X 3, Well developed/nourished, Other (appears distressed due to nausea and vomiting, with repetitive dry heaving and just spitting some saliva into emesis bag. No noted blood in sputum. ) - HEENT HEENT: Pharynx benign - Neck Neck: Supple, no meningeal sign, No adenopathy - Cardiac Cardiac: RRR, No murmur - Respiratory Respiratory: No respiratory distress, Clear bilaterally - Abdomen Abdomen: Normal bowel sounds, Soft, Non distended, No organomegaly, Other (tender epigastric to mid abd but also RUQ without guarding. ) - Female Female : Deferred - Rectal Rectal: Deferred - Back Back: No CVA TTP - Derm Derm: Normal color, Warm and dry - Neuro Neuro: Alert and oriented X 3, No motor deficit, Normal speech Results - Vitals Vitals: Vital Signs - 24 hr 06/06/23 06/06/23 06/06/23 09:38 12:01 14:00 Temperature 36.1 C L 36.5 C Heart Rate 74 80 80 Respiratory 20 18 16 Rate Blood Pressure 126/45 L 119/52 L 120/56 L O2 Saturation 100 99 100 Oxygen O2 Source Room air - Labs Labs: Laboratory Tests 06/06/23 06/06/23 06/06/23 09:53 09:53 09:53 WBC 19.5 H RBC 4.71 Hgb 13.8 Hct 40.5 MCV 86.0 MCH 29.3 MCHC 34.1 RDW 12.5 Plt Count 353 MPV 11.0 H Neut # (Auto) 16.5 H Lymph # (Auto) 2.0 [place] # (Auto) 0.8 Eos # (Auto) 0.0 Baso # (Auto) 0.1 Absolute Nucleated RBC 0.00 Nucleated RBC % 0.0 Sodium 137 Potassium 3.3 L Chloride 103 Carbon Dioxide 22 Anion Gap 12.0 BUN 13 Creatinine 0.6 Estimated GFR (MDRD) 120 Glucose 113 H Calcium 10.4 H Magnesium 1.8 Total Bilirubin 0.8 AST 18 ALT 22 Alkaline Phosphatase 79 Total Protein 8.0 Albumin 4.8 Globulin 3.2 Albumin/Globulin Ratio 1.5 Lipase 64 Vitamin B12 470 - Rads (name of study) RUQ abd US Relevant Findings:: Prelim report reviewed (no gallbladder disease. Unremarkable RUQ ultrasound. ), EMP independent interpretation of test PD Medical Decision Making - ED course Complexity details: re-evaluated patient (lessened nausea after couple of meds. Able to take PO sips of fluids but crackers caused increased nausea gain. More IV given, now Phanergan. PO benadryl did help with the throat discomfort.), considered differential (has had ongoing nausea and vomiting for couple weeks, with some improved using recent Rx meds but now vomiting even the meds 2-3 days. Given IV fluids and antiemetics IV of compazine, then phenergan as zofran had not been effective at home, along with famotidine and Toradol, decadron. ), d/w patient Reviewed Lab Results: LFTs and lipase are again normal. Lytes with some low K but otherwise not remarkable. WBC of 19K is higher than a week ago but nonspecific. It did inspire me to get upper abd U/S to eval GB area. No acute abnormality of GB noted, and labs show no pancreatitis, hepatitis. Presume gastritis from the emesis, perpetuating the suymptoms. Departure - Departure Disposition: 01 Home, Self Care Clinical Impression: Acute gastritis, Hyperemesis gravidarum, Nausea and vomiting Qualifiers: Vomiting type: bilious vomiting Qualified Code(s): R11.14 - Bilious vomiting Condition: Stable Record reviewed to determine appropriate education?: Yes Follow-Up: JOSE OWUSU MD [Primary Care Provider] - Prescriptions: dexAMETHasone [Decadron] 4 mg PO DAILY #5 tablet Bisacodyl Supp [Dulcolax Supp] 10 mg MT DAILY PRN #10 supp PRN Reason: Constipation Promethazine Supp [Phenergan Supp] 25 mg MT Q6H PRN #10 supp PRN Reason: Nausea / Vomiting Comments: Small frequent fluids. Electrolyte solutions such as Gatorade or Powerade or such are good. Starches/carbohydrates such as rice and pastas crackers etc. t end to be easier on the stomach. I would focus mostly on fluids for hydration the next day or 2 with minimal food until your feeling better. Will see if you are able to keep down the vitamin B6/pyridoxine as well as the doxylamine to help with the nausea. Also add daily a dexamethasone tablet. 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 The above are all recommended by the [employer] for nausea in . Your stomach is no doubt irritated and therefore contributing to the feeling of nausea with eating. This will take a little bit for healing. Continue with the famotidine acid reducing medicine daily for the next couple of weeks. Ondansetron if needed for nausea. If you are vomiting despite that, I wrote for some promethazine suppositories to help with nausea. Regarding feeling of constipation, again I would minimize the amount of oral intake of medication for that and instead go with a Dulcolax suppository to help with any feeling of constipation. Tylenol every 4-6 hours if needed for pains. I would hold off on any anti- inflammatories. I sent the supplemental prescriptions to the preferred pharmacy. Some of the medications were from the prior visit. Forms: PCP List Discharge Date/Time: 06/06/23 14:34
[2023-06-06 10:02] LABS: BASOPHILS # (AUTO) 0.1 10^3/uL (0.0-0.1); BASOPHILS % (AUTO) 0.4 %; EOSINOPHILS % (AUTO) 0.2 %; HCT - HEMATOCRIT 40.5 % (37.0-47.0); HGB - HEMOGLOBIN 13.8 g/dL (12.0-16.0); LYMPHOCYTES % (AUTO) 10.3 %; MEAN CORPUSCULAR HEMOGLOBIN 29.3 pg (27.0-31.0); MEAN CORPUSCULAR HGB CONC 34.1 g/dL (32.0-36.0); MONOCYTES # (AUTO) 0.8 10^3/uL (0.0-1.0); NEUTROPHILS # (AUTO) 16.5 10^3/uL (1.5-6.6); NEUTROPHILS % (AUTO) 84.6 %; PLT - PLATELET COUNT 353 10^3/uL (130-450); RED BLOOD COUNT 4.71 10^6/uL (4.20-5.40); RED CELL DISTRIBUTION WIDTH 12.5 % (12.0-15.0); WHITE BLOOD COUNT 19.5 x10^3/uL (4.8-10.8)
[2023-06-06 10:19] LABS: ALBUMIN 4.8 g/dL (3.2-5.5); ALBUMIN/GLOBULIN RATIO 1.5 (1.0-2.2); BILIRUBIN,TOTAL 0.8 mg/dL (0.2-1.0); CALCIUM 10.4 mg/dL (8.5-10.3); CREATININE 0.6 mg/dL (0.6-1.3); POTASSIUM 3.3 mmol/L (3.5-4.5)
[2023-06-06] MEDS ORDERED: FAMOTIDINE 20 MG/2 ML VIAL IVP STA (10:20)
[2023-06-06] MEDS ORDERED: PROCHLORPERAZINE 10 MG/2 ML VIAL IVP STA (10:20)
[2023-06-06] MEDS ORDERED: SODIUM CHLORIDE 0.9% 1,000 ML IV STA ×2 (10:22→11:39)
[2023-06-06] MEDS ORDERED: DEXAMETHASONE 10 MG/ML VIAL IVP STA (10:23)
[2023-06-06 10:53] LABS: MAGNESIUM 1.8 mg/dL (1.7-2.3)
[2023-06-06] MEDS ORDERED: THIAMINE INJ 100 MG in SODIUM CHLORIDE 0.9% 50 ML IV STA (11:11)
[2023-06-06] MEDS ORDERED: diphenhydrAMINE ELIXIR 25 MG/10 ML UDC PO STA (11:12)
--- NOTE | 2023-06-06 12:30 | Ultrasound Report ---
PROCEDURE: Abdomen Limited INDICATIONS: upper abd pain and vomiting; TECHNIQUE: Real-time focused scanning was performed of the abdomen, with image documentation. COMPARISONS: None. FINDINGS: Liver: Liver is normal in size and mildly heterogeneous in echotexture. Gallbladder: Unremarkable. Biliary ducts: Intrahepatic bile ducts are non-dilated. Extrahepatic bile duct caliber measures 4 m m. Normal is 6-7 mm or less in diameter, or 10 mm or less post-cholecystectomy. Pancreas: Visualized portions of the pancreas are sonographically normal. Right kidney: Normal in size and echotexture. Right kidney measures at least 9.3 cm long. No hydrone phrosis or nephrolithiasis. No solid masses. No complex renal cystic lesions which require follow-up . IVC: Intrahepatic inferior vena cava is patent. Miscellaneous: No free abdominal fluid. IMPRESSION: Unremarkable right upper quadrant ultrasound. No gallstone disease. Reviewed by: Koffi Bruce MD on 06/06/2023 12:28 PM PST Approved by: Koffi Bruce MD on 06/06/2023 12:28 PM PST Station ID: [id number]
[2023-06-06] MEDS ORDERED: PROMETHAZINE INJ 25 MG in SODIUM CHLORIDE 0.9% 50 ML IV STA (12:38)
[2023-06-06 14:09] VITALS: BP 120/56; O2SAT 100
== END 2023-06-06 14:34 | disposition home or self-care (01) ==
LOC: ED 09:33
DX: O21.1 Hyperemesis gravidarum with metabolic disturbance (principal); Z3A.08 8 weeks gestation of pregnancy; O99.611 Diseases of the digestive system complicating pregnancy, first trimester; K29.70 Gastritis, unspecified, without bleeding
CPT/HCPCS: 36415; 76705; 80053; 82607; 83690; 83735; 84425; 85025; 96365; 96367; 96375; 99284; 99285; A9270; J3411; J7040

== ENCOUNTER 2023-08-07 08:00 | Outpatient (CLI) | payer OTHER ==
[2023-08-07 22:49] LABS: CHLAMYDIA TRACHOMATIS DNA NEGATIVE (NEGATIVE); NEISSERIA GONORRHOEAE DNA NEGATIVE (NEGATIVE); TRICHOMONAS VAGINALIS DNA NEGATIVE (NEGATIVE)
== END 2023-08-07 23:59 | disposition home or self-care (01) ==
LOC: LAB.WC 08:00
PROVIDERS: ATTEND Nurse Practitioner
DX: Z34.80 Encounter for supervision of other normal pregnancy, unspecified trimester (principal); Z36.89 Encounter for other specified antenatal screening; Z87.59 Personal history of other complications of pregnancy, childbirth and the puerperium
CPT/HCPCS: 36415; 80053; 82570; 84156; 84550; 85025; 86592; 86762; 86787; 86803; 86850; 86900; 86901; 87340; 87389; 87491; 87591; 87661

== ENCOUNTER 2023-08-07 14:36 | Outpatient (CLI) | payer OTHER ==
[2023-08-07 15:06] LABS: BASOPHILS # (AUTO) 0.1 10^3/uL (0.0-0.1); BASOPHILS % (AUTO) 0.4 %; EOSINOPHILS # (AUTO) 0.2 10^3/uL (0.0-0.7); EOSINOPHILS % (AUTO) 1.2 %; HCT - HEMATOCRIT 36.4 % (37.0-47.0); HGB - HEMOGLOBIN 12.2 g/dL (12.0-16.0); LYMPHOCYTES # (AUTO) 2.1 10^3/uL (1.5-3.5); LYMPHOCYTES % (AUTO) 15.5 %; MEAN CORPUSCULAR HEMOGLOBIN 29.3 pg (27.0-31.0); MEAN CORPUSCULAR HGB CONC 33.5 g/dL (32.0-36.0); MEAN CORPUSCULAR VOLUME 87.5 fL (81.0-99.0); MEAN PLATELET VOLUME 10.9 fL (7.9-10.8); MONOCYTES # (AUTO) 0.6 10^3/uL (0.0-1.0); MONOCYTES % (AUTO) 4.7 %; NEUTROPHILS # (AUTO) 10.7 10^3/uL (1.5-6.6); NEUTROPHILS % (AUTO) 77.7 %; PLT - PLATELET COUNT 354 10^3/uL (130-450); RED BLOOD COUNT 4.16 10^6/uL (4.20-5.40); RED CELL DISTRIBUTION WIDTH 12.8 % (12.0-15.0); WHITE BLOOD COUNT 13.7 x10^3/uL (4.8-10.8)
[2023-08-07 15:22] LABS: ALBUMIN 3.7 g/dL (3.2-5.5); ALBUMIN/GLOBULIN RATIO 1.1 (1.0-2.2); BILIRUBIN,TOTAL 0.4 mg/dL (0.2-1.0); CALCIUM 9.1 mg/dL (8.5-10.3); CREATININE 0.5 mg/dL (0.6-1.3); POTASSIUM 3.3 mmol/L (3.5-4.5); URIC ACID 3.4 mg/dL (2.3-6.6)
[2023-08-08 03:11] LABS: HBsAG SCREEN Negative (Negative)
[2023-08-08 06:11] LABS: HCV AB Non Reactive (Non Reactive); HIV SCREEN 4TH GENERATION Non Reactive (Non Reactive); RPR Non Reactive (Non Reactive)
[2023-08-08 08:11] LABS: VARICELLA-ZOSTER AB IGG <135 index (Immune >165)
== END 2023-08-07 14:37 | disposition home or self-care (01) ==
LOC: LAB 14:36
PROVIDERS: ATTEND Nurse Practitioner
DX: Z34.80 Encounter for supervision of other normal pregnancy, unspecified trimester (principal); Z36.89 Encounter for other specified antenatal screening; Z87.59 Personal history of other complications of pregnancy, childbirth and the puerperium
CPT/HCPCS: 36415; 80053; 82570; 84156; 84550; 85025; 86592; 86762; 86787; 86803; 86850; 86900; 86901; 87340; 87389

== ENCOUNTER 2023-10-10 13:24 | Outpatient (CLI) | payer OTHER ==
[2023-10-10 13:39] LABS: HGB - HEMOGLOBIN 10.9 g/dL (12.0-16.0); MEAN CORPUSCULAR HEMOGLOBIN 29.2 pg (27.0-31.0); MEAN CORPUSCULAR VOLUME 88.5 fL (81.0-99.0); MEAN PLATELET VOLUME 10.9 fL (7.9-10.8); RED BLOOD COUNT 3.73 10^6/uL (4.20-5.40); RED CELL DISTRIBUTION WIDTH 12.4 % (12.0-15.0); WHITE BLOOD COUNT 15.1 x10^3/uL (4.8-10.8)
[2023-10-10 13:51] LABS: ALBUMIN 3.4 g/dL (3.2-5.5); ALBUMIN/GLOBULIN RATIO 1.1 (1.0-2.2); BILIRUBIN,TOTAL 0.3 mg/dL (0.2-1.0); CALCIUM 9.2 mg/dL (8.5-10.3); CREATININE 0.5 mg/dL (0.6-1.3); POTASSIUM 3.8 mmol/L (3.5-4.5); TOTAL PROTEIN 6.5 g/dL (6.4-8.9)
[2023-10-10 14:08] LABS: THYROID STIMULATING HORMONE 0.16 uIU/mL (0.34-5.60)
[2023-10-11 06:12] LABS: RPR Non Reactive (Non Reactive)
== END 2023-10-10 13:25 | disposition home or self-care (01) ==
LOC: LAB 13:24
PROVIDERS: ATTEND Nurse Practitioner
DX: O09.892 Supervision of other high risk pregnancies, second trimester (principal)
CPT/HCPCS: 36415; 80053; 84443; 85027; 86592

== ENCOUNTER 2023-11-27 08:00 | Outpatient (CLI) | payer OTHER ==
[2023-11-27 18:32] LABS: BILIRUBIN,URINE SMALL (NEGATIVE); CLARITY,URINE CLOUDY (CLEAR); GLUCOSE, URINE (UA) NEGATIVE (NEGATIVE); KETONES,URINE (UA) TRACE mg/dL (NEGATIVE); LEUKOCYTE ESTERASE, URINE NEGATIVE (NEGATIVE); NITRITE,URINE NEGATIVE (NEGATIVE); OCCULT BLOOD,URINE NEGATIVE (NEGATIVE); PROTEIN,URINE TRACE mg/dL (NEGATIVE); UROBILINOGEN,URINE 0.2 (NORMAL) E.U./dL (NORMAL)
[2023-11-27 18:48] LABS: AMORPHOUS SEDIMENT,UR Marked /LPF; BACTERIA,URINE Rare /HPF (None Seen); CREATININE,URINE 376.6 mg/dL; PROTEIN/CREATININE RATIO,URINE 0.1 (<=0.2); RBC,URINE None Seen /HPF (0-5); SQUAMOUS EPITHELIAL CELL,UR FEW Squamous (<= Few); WBC,URINE 0-3 /HPF (0-5)
== END 2023-11-27 23:59 | disposition home or self-care (01) ==
LOC: LAB.WC 08:00
PROVIDERS: ATTEND Nurse Practitioner
DX: O09.893 Supervision of other high risk pregnancies, third trimester (principal); Z87.59 Personal history of other complications of pregnancy, childbirth and the puerperium
CPT/HCPCS: 81001; 81003; 82570; 84156; 87086

== ENCOUNTER 2023-12-02 19:18 | Outpatient (CLI) | payer OTHER ==
--- NOTE | 2023-12-03 10:48 | Ultrasound Report ---
PROCEDURE: OB Anatomy Scan INDICATIONS: SUPERVISION OF OUTSIDE/PRIOR DATING DATA: Last menstrual period (LMP): 04/07/2023. LMP-based estimated date of delivery (TIERRA): 01/12/2024. First dating scan (date and location): 05/29/2023. Estimated date of delivery (TIERRA) from first dating scan: 01/16/2024. The below data below was generated using the ultrasound TIERRA of 01/16/2024 TECHNIQUE: Real-time scanning was performed of the fetus, with image documentation and biometric measurements. Endovaginal scanning: Not performed. COMPARISON: 05/29/2023 FINDINGS: General: A single living intrauterine gestation is present. Presentation: Vertex Placenta: Placental position is anterior, without previa. Amniotic fluid index: 10.9 cm, within normal limits for gestational age. Deepest pocket is 4.3 cm heart rate: 158 beats per minute. Maternal cervical canal: Closed and 3.6 cm long; normal length is 2.5 cm or more. biometrics: Biparietal diameter: 8.1 cm, 32 weeks 2 days Head circumference: 30.4 cm, 33 weeks 6 days Abdominal circumference: 27.7 cm, 31 weeks 6 days Femur length: 6.6 cm, 34 weeks 1 day Estimated gestational age from initial scan: 33 weeks 4 days Composite gestational age from present scan: 33 weeks 1 day Estimated weight and percentile: 2042 g, 20th percentile Measurement variability in biometric dating: +/- 10 days from 12-20 weeks gestation, +/- 2 weeks from 20-30 weeks gestation, +/- 3 weeks at 30 weeks gestation or later. Anatomic survey: Limited exam quality secondary to maternal body habitus and late gestational age. Neuro: Ventricles are normal at less than 10 mm. Cisterna magna is normal at 3-11 mm. Cerebellum i s normal in size and morphology. Nuchal skin fold: Not applicable Face: Nose and lips, facial profile are normal. Spine: Portions of the spine and skin covering spine are seen. Heart: 4-chambered heart is present, though not optimally seen due to position and late gestational age. Ventricular outflow tracts were not well seen. Diaphragm: Diaphragm is intact. Stomach: Left-sided stomach is present. Kidneys: No hydronephrosis. Normal is less than 5 mm in 2nd trimester, less than 7 mm in 3rd trimester. Cord: 3 vessel cord has orthotopic insertion. Bladder: Normal in size. Extremities: Left upper extremity was not well seen. IMPRESSION: Single living intrauterine with growth concordant with gestational age. Estimated weight at the 20th percentile. Suboptimal views of the heart and cardiac outflow tracts, left upper extremity and spine. Closed cervix and normal amniotic fluid volume. Anterior placenta. Reviewed by: Latisha Russo MD on 12/03/2023 10:47 AM PDT Approved by: Latisha Russo MD on 12/03/2023 10:47 AM PDT Station ID: [id number]
== END 2023-12-02 19:19 | disposition home or self-care (01) ==
LOC: DI 19:18
PROVIDERS: ATTEND Nurse Practitioner
DX: O09.893 Supervision of other high risk pregnancies, third trimester (principal); Z3A.33 33 weeks gestation of pregnancy; O99.343 Other mental disorders complicating pregnancy, third trimester; F31.9 Bipolar disorder, unspecified

== ENCOUNTER 2023-12-05 08:00 | Outpatient (CLI) | payer OTHER ==
[2023-12-05 17:47] LABS: BILIRUBIN,URINE SMALL (NEGATIVE); GLUCOSE, URINE (UA) NEGATIVE (NEGATIVE); KETONES,URINE (UA) NEGATIVE (NEGATIVE); LEUKOCYTE ESTERASE, URINE NEGATIVE (NEGATIVE); NITRITE,URINE NEGATIVE (NEGATIVE); OCCULT BLOOD,URINE TRACE-INTA (NEGATIVE); PH,URINE 6.5 PH (5.0-7.5); PROTEIN,URINE TRACE mg/dL (NEGATIVE); UROBILINOGEN,URINE 1 (NORMAL) E.U./dL (NORMAL)
[2023-12-05 17:49] LABS: CLARITY,URINE TURBID (CLEAR); CREATININE,URINE 250.2 mg/dL; PROTEIN/CREATININE RATIO,URINE 0.1 (<=0.2)
[2023-12-05 18:10] LABS: AMORPHOUS SEDIMENT,UR Marked /LPF; BACTERIA,URINE None Seen /HPF (None Seen); RBC,URINE 0-5 /HPF (0-5); SQUAMOUS EPITHELIAL CELL,UR RARE Squamous (<= Few); WBC,URINE 0-3 /HPF (0-5)
== END 2023-12-05 23:59 | disposition home or self-care (01) ==
LOC: LAB.WC 08:00
PROVIDERS: ATTEND Nurse Practitioner
DX: O09.893 Supervision of other high risk pregnancies, third trimester (principal)
CPT/HCPCS: 81001; 82570; 84156; 87086

== ENCOUNTER 2023-12-11 09:52 | Outpatient (CLI) | payer OTHER ==
[2023-12-11] MEDS ORDERED: LACTATED RINGERS 500 ML IV ONE (10:41)
[2023-12-11 11:20] LABS: BASOPHILS # (AUTO) 0.1 10^3/uL (0.0-0.1); BASOPHILS % (AUTO) 0.6 %; EOSINOPHILS # (AUTO) 0.1 10^3/uL (0.0-0.7); HCT - HEMATOCRIT 31.4 % (37.0-47.0); HGB - HEMOGLOBIN 10.5 g/dL (12.0-16.0); MEAN CORPUSCULAR HEMOGLOBIN 28.2 pg (27.0-31.0); MEAN CORPUSCULAR HGB CONC 33.4 g/dL (32.0-36.0); MEAN CORPUSCULAR VOLUME 84.2 fL (81.0-99.0); MEAN PLATELET VOLUME 11.7 fL (7.9-10.8); MONOCYTES # (AUTO) 0.7 10^3/uL (0.0-1.0); MONOCYTES % (AUTO) 6.3 %; NEUTROPHILS # (AUTO) 8.2 10^3/uL (1.5-6.6); NEUTROPHILS % (AUTO) 73.6 %; PLT - PLATELET COUNT 314 10^3/uL (130-450); RED BLOOD COUNT 3.73 10^6/uL (4.20-5.40); RED CELL DISTRIBUTION WIDTH 12.4 % (12.0-15.0); WHITE BLOOD COUNT 11.1 x10^3/uL (4.8-10.8)
[2023-12-11] MEDS: ONDANSETRON 4 MG/2 ML VIAL IVP PRN (11:27)
[2023-12-11 11:33] LABS: ALBUMIN 3.3 g/dL (3.2-5.5); ALBUMIN/GLOBULIN RATIO 1.1 (1.0-2.2); BILIRUBIN,TOTAL 0.4 mg/dL (0.2-1.0); CALCIUM 9.3 mg/dL (8.5-10.3); CREATININE 0.5 mg/dL (0.6-1.3); POTASSIUM 3.8 mmol/L (3.5-4.5); TOTAL PROTEIN 6.3 g/dL (6.4-8.9)
[2023-12-11] MEDS: THIAMINE IV STA (11:33)
[2023-12-11] MEDS: LACTATED RINGERS IV STA (11:33)
[2023-12-11 12:38] LABS: BILIRUBIN,URINE SMALL (NEGATIVE); CLARITY,URINE HAZY (CLEAR); GLUCOSE, URINE (UA) NEGATIVE (NEGATIVE); KETONES,URINE (UA) NEGATIVE (NEGATIVE); LEUKOCYTE ESTERASE, URINE TRACE (NEGATIVE); NITRITE,URINE NEGATIVE (NEGATIVE); OCCULT BLOOD,URINE NEGATIVE (NEGATIVE); PH,URINE 6.5 PH (5.0-7.5); PROTEIN,URINE TRACE mg/dL (NEGATIVE); UROBILINOGEN,URINE 2 E.U./dL (NORMAL)
[2023-12-11 12:55] LABS: BACTERIA,URINE Few /HPF (None Seen); MUCUS,URINE Moderate Strands; RBC,URINE 0-5 /HPF (0-5); SQUAMOUS EPITHELIAL CELL,UR MANY Squamous (<= Few); WBC,URINE 0-3 /HPF (0-5)
--- NOTE | 2023-12-11 12:59 | PROVIDER PROGRESS NOTE ---
- HPI Chief Complaint: Other (IV hydration) Current : Vital Signs Temperature 98.2 F 12/11/23 09:59 Heart Rate 92 12/11/23 09:59 Respiratory Rate 18 12/11/23 09:59 Blood Pressure 126/86 H 12/11/23 09:59 Temperature 98.2 F 12/11/23 09:59 Heart Rate 92 12/11/23 09:59 Respiratory Rate 18 12/11/23 09:59 Blood Pressure 126/86 H 12/11/23 09:59 O2 Saturation If not protocol: Oxygen Flow, liters/minute - Procedures OB Procedure Performed: NST Diagnosis/Indication for NST: Other (Hyperemesis, pelvic pain) NST Procedure: Prolonged monitoring performed, 1000 - 1212, [id number] 130s bpm baseline, + accel, - decel, mod variability [place]: irregular Service Date of procedure: 12/11/23 Findings: Reactive, Cat 1. Occasional contractions noted, not painful, and spaced out with IV hydration. - Plan Plan: Nai is a 28 yo at 35w3d who presents to triage after clinic visit for possible IV hydration. complicated by hyperemesis, anxiety with h/o mood disorder and PTSD, history preeclampsia in prior . Nai has struggled with N/V her whole , not taking her antiemetics regularly. Has a hard time keeping her meds down, stopped phenergan suppository due to hemorrhoid. Reports + heartburn. Reports she was able to tolerate and keep down a small amount of oatmeal this morning. Some days, not able to keep anything down. She also reports pelvic pain ongoing x 1 month. Pain is suprapubic in nature and radiates up towards her belly button sometime. Described as sharp/crampy and constant. Worsens with movement, light touch of the pubic bone area, and babies movements. Does not feel like contractions to her. She has a PT referra l in place but has not yet scheduled (was focused on getting son into therapy). Reports unable to find a support belt that she could afford. No burning with urination buts BMs and urination is uncomfortable. No VB, discharge, LOF. + FM. Declines SVE, does not feel that pain is contraction- related and feels it will cause too much pain in her pelvis. She reports significant anxiety. Was prescribed Lexapro at her last visit but has not yet started taking, worried that she will throw it up. She feels that she really needs to start medication prior to delivery as she thinks her mood will worsen after delivery. She has a referral to , on wait list to be seen. Agreeable to seeing healthcare social worker today to discuss other mental health resources. She declines a virtual mental health consult today, feels that talking about all of the things she gone through in the past will make her feel worse. Denies any thoughts of self-harm. O: Gen: in obvious pain at times, does not appear to be consistent with contractions on toco Resp: no resp distress Abd: gravid, very TTP over pubic symphysis Ext: no LE edema SVE declined by pt A/P: 28 at 35w3d: Hyperemesis: Able to tolerate PO after IV hydration, IV zofran, and protonix. Discharged home with plan to restart home antiemetics. Encouraged to start iwth MO phenergan when feeling nauseated. Pelvic pain: intermittent contractions noted on the monitor, but contractions do not appear to coincide with her pain. Contractions improved with hydration and SVE declined. Does not appear to be c/w labor. Pain possibly from pubic symphysis/pelvic girdle, discussed support belt and to schedule PT appointment (has already been referred). Written information also provided about pelvic girdle/pubic symphysis pain. labor precautions reviewed. Anxiety, h/o mood d/o and PTSD: declined virtual mental health visit today but seen by and community resources provided. Incomplete anatomy views: follow up US performed prior to discharge as Nai uncertain she would make it to outpatient radiology appointment, will follow up outpatient. Juice Valadez MD
[2023-12-11] MEDS: ACETAMINOPHEN 1,000 MG/100 ML 1,000 MG/100 ML BAG IV ONE (13:07)
[2023-12-11] MEDS: LACTATED RINGERS 1,000 ML IV SCH (13:07)
[2023-12-11] MEDS: PROMETHAZINE 25 MG TABLET PR PRN (15:06)
[2023-12-11] MEDS: PANTOPRAZOLE 40 MG VIAL IV STA (15:07)
[2023-12-11 16:17] VITALS: BP 116/68; O2SAT 99
--- NOTE | 2023-12-12 12:13 | Ultrasound Report ---
PROCEDURE: OB Follow up INDICATIONS: completion of anatomy survery OUTSIDE/PRIOR DATING DATA: Last menstrual period (LMP): 04/07/2023. LMP-based estimated date of delivery (TIERRA): 01/12/2024. First dating scan (date and location): 05/29/2023. Estimated date of delivery (TIERRA) from first dating scan: 01/16/2024. The below data below was generated using the sonographic TIERRA of 01/16/2024 TECHNIQUE: Real-time scanning was performed of the fetus, with image documentation and biometric measurements. Endovaginal scanning: Not performed. COMPARISON: 12/02/2023 FINDINGS: General: A single living intrauterine gestation is present. Presentation: Vertex Placenta: Placental position is anterior, without previa. Amniotic fluid index: 11.9 cm, within normal limits for gestational age. Deepest pocket is 4.4 cm. heart rate: 145 beats per minute. Maternal cervical canal: Not seen. Other: 4 chambered heart and left ventricular outflow tract is normal. Right ventricular outflow trac t is not optimally seen, but no definite abnormalities. Left upper extremity and spine appear g rossly normal given leg gestational age. Incidental note is made of single nuchal cord. IMPRESSION: Single living intrauterine in vertex presentation. Maternal cervix is not well seen, however amniotic fluid volume is normal. Second attempts at cardiac imaging are still somewhat limited due to maternal body habitus and late gestational age. 4 chambered heart and left ventricular outflow tract are within normal limits. Right ventricular outflow tract imaging was suboptimal. Completion of anatomic survey with identification of left upper extremity and skin covering spine. Incidental note of single nuchal cord. Reviewed by: Latisha Russo MD on 12/12/2023 12:12 PM PDT Approved by: Latisha Russo MD on 12/12/2023 12:12 PM PDT Station ID: [id number]
== END 2023-12-11 18:51 | disposition home or self-care (01) ==
LOC: WFO 09:52 → FBP 09:54 → WFO 18:51
PROVIDERS: ATTEND Obstetrics & Gynecology
DX: O21.0 Mild hyperemesis gravidarum (principal); O99.891 Other specified diseases and conditions complicating pregnancy; R10.2 Pelvic and perineal pain; O99.343 Other mental disorders complicating pregnancy, third trimester; F41.9 Anxiety disorder, unspecified; F43.10 Post-traumatic stress disorder, unspecified; T45.0X6A Underdosing of antiallergic and antiemetic drugs, initial encounter; Z3A.35 35 weeks gestation of pregnancy; Z91.128 Patient's intentional underdosing of medication regimen for other reason
CPT/HCPCS: 59025; 76816; 80053; 81001; 85025; 96374; 96375; 96376; 99215; J0131; J3411; J7120; Q0169; 81003; 87086

== ENCOUNTER 2023-12-19 08:00 | Outpatient (CLI) | payer OTHER | END 2023-12-19 23:59 | disposition home or self-care (01) | LOC: LAB.WC 08:00 | PROVIDERS: ATTEND Nurse Practitioner | DX: Z36.85 Encounter for antenatal screening for Streptococcus B (principal) | CPT/HCPCS: 87797 ==

== ENCOUNTER 2024-01-02 17:39 | Outpatient (CLI) | payer OTHER ==
--- NOTE | 2024-01-02 22:04 | Ultrasound Report ---
PROCEDURE: OB Follow up INDICATIONS: SUPERVISION OF OUTSIDE/PRIOR DATING DATA: Last menstrual period (LMP): 04/07/2023. LMP-based estimated date of delivery (TIERRA): 01 09-. First dating scan (date and location): 05/29/2023. Estimated date of delivery (TIERRA) from first dating scan: 01/16/2024. The below data below was generated using the working TIERRA of 01/16/2024 TECHNIQUE: Real-time scanning was performed of the fetus, with image documentation and biometric measurements. Endovaginal scanning: Not performed. COMPARISON: 12/11/2023, 12/02/2023. FINDINGS: General: A single living intrauterine gestation is present. Presentation: Vertex Placenta: Placental position is anterior, without previa. Amniotic fluid index: 17.4 cm, 74.1% for gestational age. heart rate: 131 beats per minute. Maternal cervical canal: Not evaluated. biometrics: Biparietal diameter: 8.8 cm, 35 weeks, 4 days, 12.5% Head circumference: 33.51 cm, 38 weeks, 2 days, 37.9% Abdominal circumference: 29.9 cm, 33 weeks, 2 days, less than 0.5% Femur length: 7.35 cm, 37 weeks, 4 days, 42.5% Estimated gestational age from initial scan: 38 weeks, 0 day Composite gestational age from present scan: 36 weeks, 1 day Estimated weight and percentile: 2638 g, 7.3%. Measurement variability in biometric dating: +/- 10 days from 12-20 weeks gestation, +/- 2 weeks from 20-30 weeks gestation, +/- 3 weeks at 30 weeks gestation or more. Umbilical cord S/D ratio: 1.87@placental insertion, 2.7 at mid cord, and 4.2 at the abdominal inserti on. Right ventricular outflow track is visualized and is within normal limits. IMPRESSION: 1. Single live intrauterine gestation with fetus in vertex presentation. heart rate is 131 bpm. Normal JANNA at 17.4 cm. 2. Estimated weight is at 7.3%. Small abdominal circumference measures less than 0.5% for patie nt's gestational age. 3. Elevated umbilical cord S/D ratio at the abdominal insertion. 4. Right ventricular outflow tract is visualized and is within normal limits. Reviewed by: Schuyler Mello MD on 01/02/2024 10:03 PM PDT Approved by: Schuyler Mello MD on 01/02/2024 10:03 PM PDT Station ID: [id number]
== END 2024-01-02 17:40 | disposition home or self-care (01) ==
LOC: DI 17:39
PROVIDERS: ATTEND Nurse Practitioner
DX: O09.893 Supervision of other high risk pregnancies, third trimester (principal); Z3A.36 36 weeks gestation of pregnancy

== ENCOUNTER 2024-01-04 21:46 | Inpatient (IN) | payer OTHER ==
[2024-01-05] MEDS ORDERED: SODIUM CHLORIDE FLUSH 0.9% 10 ML SYRINGE IVP PRN (00:07)
[2024-01-05] MEDS ORDERED: LABETALOL 20 MG/4 ML SYRINGE IVP PRN ×3 (00:37)
[2024-01-05] MEDS ORDERED: TRANEXAMIC ACID IN NACL 1,000 MG/100 ML BAG IV PRN (00:37)
[2024-01-05] MEDS ORDERED: OXYTOCIN 10 UNIT/ML VIAL IM PRN (00:37)
[2024-01-05] MEDS ORDERED: miSOPROStoL 200 MCG TABLET BC PRN (00:37)
[2024-01-05] MEDS ORDERED: TERBUTALINE 1 MG/ML VIAL SUBQ PRN (00:37)
[2024-01-05] MEDS ORDERED: ACETAMINOPHEN 500 MG TABLET PO PRN (00:37)
[2024-01-05] MEDS ORDERED: miSOPROStoL 200 MCG TABLET PR PRN (00:37)
[2024-01-05] MEDS ORDERED: hydrALAZINE INJ 20 MG/ML VIAL IVP PRN ×2 (00:37)
[2024-01-05] MEDS ORDERED: fentaNYL 100 MCG/2 ML VIAL IVP PRN (00:37)
[2024-01-05] MEDS ORDERED: CARBOPROST TROMETHAMINE 250 MCG/ML VIAL IM PRN (00:37)
[2024-01-05] MEDS ORDERED: METHYLERGONOVINE 0.2 MG/ML VIAL IM PRN (00:37)
[2024-01-05] MEDS ORDERED: NIFEdipine 10 MG CAPSULE PO PRN (00:37)
[2024-01-05] MEDS ORDERED: lidocaine 1% 20 ML MDV ID PRN (00:37)
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
[2024-01-05] MEDS: LACTATED RINGERS 1,000 ML IV PRN (00:56)
[2024-01-05] MEDS: ONDANSETRON 4 MG/2 ML VIAL IVP PRN ×2 (00:58→04:27)
[2024-01-05 01:22] LABS: ALBUMIN 3.1 g/dL (3.2-5.5); BILIRUBIN,TOTAL 0.3 mg/dL (0.2-1.0); CALCIUM 9.1 mg/dL (8.5-10.3); CREATININE 0.5 mg/dL (0.6-1.3); POTASSIUM 3.5 mmol/L (3.5-4.5); TOTAL PROTEIN 6.1 g/dL (6.4-8.9)
[2024-01-05] MEDS ORDERED: LIDOCAINE 2%-EPI 1:100000 20 ML MDV ONE (01:25)
[2024-01-05] MEDS ORDERED: ROPIVACAINE 0.2% 0 MG/0 ML BAG EP ONE (01:25)
[2024-01-05] MEDS ORDERED: ROPIVACAINE 0.2% 200 MG/100 ML BAG EP ONE (01:42)
[2024-01-05] MEDS ORDERED: fentaNYL 100 MCG/2 ML VIAL ONE (01:42)
[2024-01-05] MEDS ORDERED: GLYCOPYRROLATE 1 MG/5 ML VIAL ONE (01:45)
[2024-01-05 01:49] LABS: BASOPHILS # (AUTO) 0.1 10^3/uL (0.0-0.1); BASOPHILS % (AUTO) 0.5 %; EOSINOPHILS # (AUTO) 0.2 10^3/uL (0.0-0.7); EOSINOPHILS % (AUTO) 1.8 %; HCT - HEMATOCRIT 30.7 % (37.0-47.0); HGB - HEMOGLOBIN 9.5 g/dL (12.0-16.0); LYMPHOCYTES # (AUTO) 2.7 10^3/uL (1.5-3.5); LYMPHOCYTES % (AUTO) 20.2 %; MEAN CORPUSCULAR HGB CONC 30.9 g/dL (32.0-36.0); MEAN CORPUSCULAR VOLUME 84.1 fL (81.0-99.0); MEAN PLATELET VOLUME 12.4 fL (7.9-10.8); MONOCYTES # (AUTO) 1.1 10^3/uL (0.0-1.0); MONOCYTES % (AUTO) 8.1 %; NEUTROPHILS # (AUTO) 9.1 10^3/uL (1.5-6.6); NEUTROPHILS % (AUTO) 68.9 %; PLT - PLATELET COUNT 355 10^3/uL (130-450); RED BLOOD COUNT 3.65 10^6/uL (4.20-5.40); RED CELL DISTRIBUTION WIDTH 13.3 % (12.0-15.0); WHITE BLOOD COUNT 13.1 x10^3/uL (4.8-10.8)
[2024-01-05] MEDS ORDERED: LIDOCAINE 1% 2 ML VIAL ONE ×2 (02:35)
[2024-01-05] MEDS ORDERED: NALBUPHINE 10 MG/ML AMP ONE (03:20)
[2024-01-05] MEDS ORDERED: PHENYLEPHRINE HCL 0.5 MG/5 ML AMPULE ONE (03:31)
[2024-01-05] MEDS: LACTATED RINGERS 1,000 ML IV SCH ×2 (04:09→08:51)
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
[2024-01-05] MEDS ORDERED: diphenhydrAMINE INJ 50 MG/ML VIAL IVP PRN (04:12)
[2024-01-05] MEDS ORDERED: NALBUPHINE 10 MG/ML AMP IVP PRN (04:12)
[2024-01-05] MEDS ORDERED: METOCLOPRAMIDE 10 MG/2 ML VIAL IVP PRN (04:12)
[2024-01-05] MEDS ORDERED: NALOXONE 0.4 MG/ML VIAL IVP PRN (04:12)
[2024-01-05] MEDS ORDERED: ePHEDrine 50 MG/ML VIAL IVP PRN (04:12)
[2024-01-05 05:56] LABS: RUPTURE OF MEMBRANES PLUS NEGATIVE (NEGATIVE)
[2024-01-05 08:15] LABS: ESTIMATED AVERAGE GLUCOSE 103 mg/dL (70-100); HEMOGLOBIN A1c% 5.2 % (4.27-6.07)
[2024-01-05] MEDS: OXYTOCIN/SODIUM CHLORIDE 500 ML IV PRN (08:51)
[2024-01-05] MEDS: OXYTOCIN/SODIUM CHLORIDE 500 ML IV SCH (09:25)
[2024-01-05] MEDS: ROPIVACAINE 0.2% 200 MG/100 ML BAG EP PRN (11:09)
--- NOTE | 2024-01-05 11:16 | PHARMACY PROGRESS NOTE ---
- Best Possible Medication History Admit Date and Time: 01/05/24 0037 Processed by: Pharmacy Medications reviewed in ED?: No Medication History completed: Yes Patient Interview: Pt unable to participate Secondary Source(s): Physician records, Insurance records (PER PROVIDER NOTE, PT HAS REFUSED MEDICATION MANAGEMENT OF ACUTE AND CHRONIC CONDITIONS) As the person ultimately responsible for medication therapy, providers are able to order a medication from an existing home medication list in [facility] via the "Reconcile Routine" prior to Confirmation of that medication by community support associate. Such practice is discouraged except when the physician, in their clinical judgment, deems that a medical need exists for a medication without regard to previous use.
--- NOTE | 2024-01-05 17:18 | PROVIDER PROGRESS NOTE ---
<Asia Briceno - Last Filed: 01/05/24 17:19> Labor Progress Note - Uterine Monitoring Uterine Monitoring Mode: positive: External toco Contraction Frequency (min/apart): q2-3 Uterine Resting Tone: positive: Soft - Monitoring Monitor Mode: positive: External ultrasound Heart Rate Baseline: 130's Heart Rate Variability: positive: Moderate (6-25 bmp) Accelerations: positive: Present, 15x15 Decelerations: positive: None Strip Review: positive: Category I - Vaginal Exam Dilation (in cm): 3 Effacement (%): 50 Station: -2 - Labor Progress Note Labor Progress Note/Additional Text: S: Anxious. lying on far right side. epidural for pain management. Dislikes sensation of numbness to her legs. Some discomfort, but overall seems to have good pain control. Her and son at bedside. Acid reflex and increased saliva continue. Vaping marijuana has been the only remedy that has worked for her nausea. Would be open to trying medication to help with relief. O: FHR 130's, no significant decelerations. SVE 3/50/-2, vertex. Stan q 2-3 minutes. A: 28 yo @ 39 weeks by sure LMP and confirmed by 6+6 week ultrasound Cervix unchanged since 12:30 today Oxytocin at 14 mu/min P: AROM Moderate amount of clear fluid. Maintain epidural for labor anesthesia. Continuos monitoring. Encouraged rotation in bed on peanut ball Will ask RN team to recheck cervical dilation in 2 hours. If unchanged,will plan for IUPC. Patient amendable. Anticipate . REMEDIOS Mcgee, Student Nurse Single End Sewer <Adryan Veronica - Last Filed: 01/06/24 07:51> Labor Progress Note - Labor Progress Note Labor Progress Note/Additional Text: Present for care with student nurse route cdl driverluba Briceno. AROM with clear fluid. Continue with oxytocin management. Adryan Veronica MD
[2024-01-05] MEDS ORDERED: FAMOTIDINE 20 MG/2 ML VIAL IVP SCH (21:00)
[2024-01-05] MEDS ORDERED: CALCIUM CARBONATE CHEW 500 MG TABLET PO PRN (21:44)
[2024-01-05] MEDS ORDERED: SIMETHICONE CHEW 80 MG TABLET PO PRN (21:44)
[2024-01-05] MEDS ORDERED: ONDANSETRON 4 MG/2 ML VIAL IVP PRN (21:44)
[2024-01-05] MEDS ORDERED: WITCH HAZEL/GLYCERIN 1 PAD TOP PRN (21:50)
[2024-01-05] MEDS ORDERED: LACTATED RINGERS 1,000 ML IV SCH (22:00)
--- NOTE | 2024-01-05 22:09 | DELIVERY NOTE ---
<Asia Briceno - Last Filed: 01/05/24 22:10> Delivery Note - Labor Labor: positive: Spontaneous, Augmented by oxytocin - Delivery Method Delivery Method: positive: Spontaneous vaginal delivery - Presentation Presentation: positive: Vertex, ELISEO - left occiput anterior - Nuchal Cord Nuchal Cord: positive: None - Episiotomy Type Episiotomy Type: positive: None - Laceration Laceration: positive: None - Delivery Outcome Delivery Outcome: positive: Livebirth - [place]: positive: Placed in direct skin contact with mother, Suctioned, Bulb syringe, Stimulated, Warmed sex: positive: Female - Cord Cord: positive: 3 vessels - Placenta Placenta: positive: Intact, Spontaneous - Estimated Blood Loss Estimated Blood Loss (in cc): 200 - Post Delivery Events Post Delivery Events: positive: No post delivery events - Delivery Comments (Free Text/Narrative) Delivery Comments (Free Text/Narrative): This 28 yo @ 38+6 weeks by sure LMP and confirmed by 6+6 week ultrasound presented to L&D after feeling increasingly pelvic pain. Upon arrival on 01/04/2024, her cervix was 2/50/-3. Her discomfort continued and she was admitted. GBS negative. Oxytocin for labor augmentation (max infusion of 14 mu/min). FHR pattern demonstrated primarily category I thorough labor, and category II just prior to second stage. Epidural placed upon maternal request. AROM occurred @ 1729. She then progressed to complete/complete @ 2056. : Normal spontaneous vaginal delivery of a viable female on 01/05/2024 @ 2117. Nuchal x1 (reduced). Body cord. The was placed on maternal abdomen, stimulated, dried and placed skin to skin. Apgars 8 @1 min, and 9 @ 5 minutes. The umbilical cord was allowed to stop pulsating at which time it was doubly clamped by delivering provider and cut by FOB. 3VC. Cord blood was obtained. Fundal massage and gently cord traction applied for active management of the third stage, placenta delivered spontaneously and intact @ 2122. EBL 200. Placenta was WAS NOT sent to pathology. Thirty units of Pitocin were added to the IV fluid and allowed to run freely. Uterine massage was performed until uterus was deemed firm. Perineum was found to be intact. Fourth stage: Uterine fundus firm and there is no excessive bleeding. The perineum, vagina and cervix were inspected and found to be intact. Family bonding well. Both mother and baby are in stable condition. REMEDIOS Mcgee, Student Nurse Generator Repairer <Adryan Veronica - Last Filed: 01/06/24 07:50> Delivery Note - Delivery Comments (Free Text/Narrative) Delivery Comments (Free Text/Narrative): I was present and participated with the delivery of the live gonzalez with student pharmaceutical botanist Asia Briceno. The patient and had no complications and were stable in the delivery room together. Adryan Veronica MD
[2024-01-05] MEDS: ACETAMINOPHEN 500 MG TABLET PO SCH (23:15)
[2024-01-05] MEDS: IBUPROFEN 600 MG TABLET PO SCH (23:15)
--- NOTE | 2024-01-06 07:55 | PROVIDER PROGRESS NOTE ---
Subjective - Subjective Subjective: Subjective Patient reports she is doing well. Lochia appropriate. Denies heavy bleeding. Ambulating. Pelvic and abdominal pain well-controlled. Tolerating oral intake. Diet: Regular. Voiding without difficulty. Passing flatus. Denies BM. Patient is bonding with baby in room Breast feeding going well. Denies feeling lightheaded, dizzy or excessively fatigued. Objective General: Alert, oriented, no apparent distress. Cardiovascular: Regular rate. Regular rhythm. Lungs: No increased work of breathing. Abdomen: Uterus firm. Below umbilicus. No guarding or rebound. Extremities: No pain on palpation. No cords palpated. Distal pulses intact. Assessment and Plan day 1. -Routine care -Anticipate discharge tomorrow Anemia of -iron infusion today B12 deficiency, -Not causing anemia, and normal MCV. -Will start oral b12 supplementation, 1000mcg daily. Objective - Vital Signs/Intake & Output Vital Signs: Vital Signs x48h Temp Pulse Resp BP 01/06/24 03:02 98.1 F 55 L 18 116/67 Intake & Output: Intake & Output 01/03/24 01/04/24 01/05/24 01/06/24 23:59 23:59 23:59 23:59 Intake Total 2933.333 1000 Output Total 645 Balance 2288.333 1000 - Lab Results Fish Bones: 01/05/24 00:38 01/05/24 00:38 Other Labs: Lab Results x24hrs 01/05/24 Range/Units 00:38 Estimat Average Glucose 103 H (70-100) mg/dL Hemoglobin A1c % 5.2 (4.27-6.07) %
[2024-01-06] MEDS: DOCUSATE SODIUM 100 MG CAPSULE PO PRN (08:13)
[2024-01-06] MEDS ORDERED: IBUPROFEN 800 MG TABLET PO SCH (09:00)
[2024-01-06] MEDS: IBUPROFEN 800 MG TABLET PO SCH (09:00)
[2024-01-06] MEDS: CYANOCOBALAMIN 500 MCG TABLET PO SCH (10:28)
[2024-01-06] MEDS: IRON DEXTRAN 1,000 MG in SODIUM CHLORIDE 0.9% 500 ML IV ONE (11:07)
[2024-01-07 09:55] VITALS: BP 118/64; O2SAT 98
--- NOTE | 2024-01-07 12:55 | Labor Flowsheet ---
Labor Flowsheet Datetime Report Generated by CPN: 01/07/2024 12:55 Datetime: 01/07/2024 09:37 VITAL SIGNS NBP Sys/Abimbola/Mean (mmHg): 119 : 65 : 77 Pulse: 80 Datetime: 01/06/2024 16:05 SpO2 (%): 98 Datetime: 01/05/2024 23:16 Stage of : Recovery Respirations: 18 Datetime: 01/05/2024 22:13 Membranes Ruptured Date/Time: 01/05/2024 17:30 Datetime: 01/05/2024 21:31 Temperature (C): 37.1 Temperature Route: Oral Datetime: 01/05/2024 21:17 Communication Comments: viable delivery of baby girl Datetime: 01/05/2024 21:15 UTERINE ACTIVITY Monitor Mode: External Frequency (min): 1-2.5min Quality: Moderate Duration (sec): 50-80sec Pattern: Normal: <= 5 Contractions in 10 Minutes Resting Tone (Palpate): Relaxed ASSESSMENT A Monitor Mode: Telemetry FHR Baseline Rate : 145 FHR Baseline Changes: No Baseline Change Variability: Moderate 6-25 bpm Accelerations: 15X15 Decelerations: None Category: Category I Datetime: 01/05/2024 21:00 Pitocin Checklist: At Least 1 Acceleration of 15 bpm x 15 Seconds in 30 Minutes or Adequate Variabi lity; No More than 1 Late Deceleration Occurred in Past 30 Minutes; No More than 2 Variable Decelerat ions > 60 Seconds in Duration and decreasing >60 bpm in 30 minutes; No More than 5 Uterine Contractio ns in 10 Minutes for any 20 Minute Interval; Uterus Palpates Soft between Contractions Datetime: 01/05/2024 20:55 LaborFlag: Labor Datetime: 01/05/2024 20:25 Patient Position/Activity: Left Lateral Datetime: 01/05/2024 18:41 VAGINAL EXAM Dilatation (cm): 4.0 Effacement (%): 50 Station: -2 Exam by: Marisel Garcias Vaginal Bleeding: None Cervix, Consistency: Soft Cervix, Position: Anterior Datetime: 01/05/2024 18:13 Monitor Interventions for UA: [place] Adjusted Datetime: 01/05/2024 17:07 Membrane Status: Ruptured Membranes Rupture Method: Artificial Amniotic Fluid Color: Clear Amniotic Fluid Amount: Moderate Amniotic Fluid Odor: Normal Datetime: 01/05/2024 17:06 Procedures: Sterile Vag Exam Datetime: 01/05/2024 15:30 Monitor Interventions for FHR: Ultrasound Adjusted Datetime: 01/05/2024 15:09 MEDICATIONS Pitocin (milliunits): Increased to @ (Annotations: 12) Datetime: 01/05/2024 13:45 COMMUNICATION Communication: RN Reviewed Strip Datetime: 01/05/2024 12:47 Vaginal Exam Comments: Patient consent given prior to SVE. Datetime: 01/05/2024 08:51 Medication Comments: LR increased to 175ml/hr per MD order Datetime: 01/05/2024 08:13 Antiemetics/Antacids: Zofran (mg) @ 4 Datetime: 01/05/2024 08:11 Patient Care Comments: oral hygeine care provided Datetime: 01/05/2024 05:35 Pain Assessment Comments: sleeping Datetime: 01/05/2024 04:56 Anesthesia Level Check: T5 Datetime: 01/05/2024 04:41 MATERNAL ASSESSMENT Level of Consciousness: Alert Nausea/Vomiting: Hx of Nausea/Vomiting Datetime: 01/05/2024 03:13 Epidural Procedure: Loading Dose Datetime: 01/05/2024 02:10 ANESTHESIA Anesthesia Plans: Epidural Epidural Positioning: Sitting Datetime: 01/05/2024 01:12 PAIN Pain Scale: 8 Pain Presence: Intermittent Pain Type: Sharp Pain Location: Abdomen Datetime: 01/05/2024 00:59 PATIENT CARE IV/Blood Work: IV Bolus Started; New IV Bag Hung Datetime: 01/05/2024 00:36 Notification Reason: Labor Status Datetime: 01/04/2024 22:00 Presentation 'A': Cephalic
--- NOTE | 2024-01-12 21:17 | DISCHARGE SUMMARY ---
Discharge Summary Admit Date: 01/05/24 Discharge Date: 01/07/24 Discharging Provider: Anisa Leahy MD Code Status: Attempt Resuscitation - DIAGNOSES Admission Diagnoses: early labor at term. anxiety Discharge Diagnoses with Status of Each Condition: s/p vaginal delivery without complication anemia of stable without need for transfusion. - HPI History of Present Illness: presents in early labor very anxious. - HOSPITAL COURSE Hospital Course: She was admitted for labor pain management. Used nitrous and then had epidural placed. This was difficult and took a while as her spine is very tight, but once done she seemed to have good relief. she labored slowly. got some pitocin and then went very quickly for 4 cm to delivered. this active part of labor was about 1 hour. She delivered a live female infant with Apgars of 9/9 weighing 2665 grams. 20 in long. PP course was normal and she was discharge on PPD #2. she was breast feeding without issue. - ALLERGIES Allergies/Adverse Reactions: Allergies Allergy/AdvReac Type Severity Reaction Status Date / Time No Known Drug Allergies Allergy Verified 06/06/23 09:41 - MEDICATIONS Home Medications: Ambulatory Orders Medication Instructions Recorded Confirmed Iron Fumarate/Vit C/Vit B12/FA 1 each PO DAILY #90 cap 01/07/24 [Hematogen Forte Softgel] 168/Iron/Folic/Omega3 1 each PO DAILY #90 cap 01/07/24 [One-A-Day -1 Softgel] - PHYSICAL EXAM AT DISCHARGE General Appearance: positive: No acute distress Respiratory: positive: No respiratory distress Cardiovascular: positive: Regular rate & rhythm Skin: positive: Color nml Extremities: positive: Non-tender, Nml appearance - LABS Result Diagrams: 01/05/24 00:38 01/05/24 00:38 - FOLLOW UP Follow Up: in clinic in 1 week - TIME SPENT Time Spent in Discharge (Minutes): 30
== END 2024-01-07 11:15 | disposition home or self-care (01) | DRG 807 ==
LOC: WFO 21:46 → FBP 21:48 → WFO 23:00 → FBP 23:20 → OBSVTOIN 01-05 00:37
PROVIDERS: ADMIT Obstetrics & Gynecology; ATTEND Obstetrics & Gynecology
PROC: 10E0XZZ Delivery of Products of Conception, External Approach (ICD-10-PCS; principal; 2024-01-05)
PROC: 10907ZC Drainage of Amniotic Fluid, Therapeutic from Products of Conception, Via Natural or Artificial Opening (ICD-10-PCS; 2024-01-05)
DX: O99.344 Other mental disorders complicating childbirth (principal); Z37.0 Single live birth; F41.9 Anxiety disorder, unspecified; O69.81X0 Labor and delivery complicated by cord around neck, without compression, not applicable or unspecified; Z3A.38 38 weeks gestation of pregnancy; F31.9 Bipolar disorder, unspecified; F43.10 Post-traumatic stress disorder, unspecified; O21.0 Mild hyperemesis gravidarum; O99.892 Other specified diseases and conditions complicating childbirth; R29.898 Other symptoms and signs involving the musculoskeletal system; O99.334 Smoking (tobacco) complicating childbirth; F17.290 Nicotine dependence, other tobacco product, uncomplicated; O99.02 Anemia complicating childbirth; E53.8 Deficiency of other specified B group vitamins; O99.284 Endocrine, nutritional and metabolic diseases complicating childbirth
CPT/HCPCS: 36415; 59409; 80053; 82607; 83036; 84112; 84443; 85025; 86850; 86900; 86901; 99215; A9270; G0378; J1750; J2300; J2372; J7120